=== PATIENT | male | born 1955 | race Caucasian/White ===

== ENCOUNTER 2017-04-18 16:47 | Inpatient (IN) | payer MEDICAID, OTHER ==
--- NOTE | 2017-04-18 17:33 | ED ---
Psych HPI - General Chief Complaint: Psychiatric Symptoms Stated Complaint: Mental Health Time Seen by Provider: 04/18/17 17:08 Source: patient, RN notes reviewed Mode of arrival: ambulatory Limitations: no limitations - History of Present Illness Initial Comments: This a 61-year-old male presents emergency Department from primary care physician's office for psychiatric evaluation. Patient states he is depressed, suicidal he did have a plan to either stab himself or shoot himself. Patient states he does have guns in his household. Patient states that he also has been hearing voices which is unusual for him. Patient denies any physical complaints. He states he is been taking his medications as directed as medications are given to him by his . His also states that his been slightly more aggressive recently. - Related Data Home Medications Medication Instructions Recorded Confirmed ALPRAZolam [Xanax] 1 mg PO TID PRN 05/05/16 04/18/17 Aclidinium [place] [Tudorza 1 puff INHALATION RT-Q12H 05/05/16 04/18/17 Pressair] Albuterol Inhaler [Ventolin Hfa 2 puff INHALATION RT-Q4H PRN 05/05/16 04/18/17 Inhaler] Amitriptyline HCl 25 mg PO DAILY 05/05/16 04/18/17 Atorvastatin [Lipitor] 40 mg PO DAILY 05/05/16 04/18/17 Cyclobenzaprine [Flexeril] 10 mg PO TID PRN 05/05/16 04/18/17 Donepezil [Aricept] 10 mg PO DAILY 05/05/16 04/18/17 FLUoxetine HCL [PROzac] 20 mg PO DAILY 05/05/16 04/18/17 Fenofibrate [Lofibra] 160 mg PO DAILY 05/05/16 04/18/17 HYDROcodone/APAP 7.5-325MG [[place] 1 tab PO TID PRN 05/05/16 04/18/17 7.5-325] Insulin Glargine [Lantus] 20 unit SQ HS 05/05/16 04/18/17 Insulin Glulisine [Apidra] 20 units SQ AC-TID 05/05/16 04/18/17 Magnesium Oxide [Magox 400] 400 mg PO BID 05/05/16 04/18/17 Metoprolol Tartrate [Lopressor] 50 mg PO BID 05/05/16 04/18/17 Potassium Chloride [Klor-Con] 20 meq PO DAILY 05/05/16 04/18/17 Warfarin [Coumadin] 5 mg PO DAILY 05/05/16 04/18/17 amLODIPine [Norvasc] 10 mg PO DAILY 05/05/16 04/18/17 levETIRAcetam [Keppra] 500 mg PO BID 05/05/16 04/18/17 metFORMIN HCL [Glucophage] 500 mg PO BID 05/05/16 04/18/17 Albuterol Nebulized [Ventolin 2.5 mg INHALATION RT-QID PRN 04/18/17 04/18/17 Nebulized] Docusate [Colace] 100 mg PO DAILY 04/18/17 04/18/17 Lisinopril [Zestril] 5 mg PO DAILY 04/18/17 04/18/17 Nitroglycerin Sl Tabs [Nitrostat] 0.4 mg SUBLINGUAL Q5M PRN 04/18/17 04/18/17 Zolpidem [Ambien] 5 mg PO HS 04/18/17 04/18/17 cloNIDine HCL [Catapres] 0.2 mg PO BID 04/18/17 04/18/17 Allergies Allergy/AdvReac Type Severity Reaction Status Date / Time aspirin Allergy Rash/Hives Verified 04/18/17 17:12 clarithromycin [From Biaxin] Allergy Rash/Hives Verified 04/18/17 17:12 Penicillins Allergy Rash/Hives Verified 04/18/17 17:12 Review of Systems ROS Statement: Those systems with pertinent positive or pertinent negative responses have been documented in the HPI. ROS Other: All systems not noted in ROS Statement are negative. Past Medical History Past Medical History: Atrial Fibrillation, Heart Failure, COPD, CVA/TIA, Diabetes Mellitus, Hyperlipidemia, Hypertension, Myocardial Infarction ([place]) History of Any Multi-Drug Resistant Organisms: None Reported Past Surgical History: Appendectomy, Tonsillectomy Past Anesthesia/Blood Transfusion Reactions: No Reported Reaction Past Psychological History: Anxiety, Depression Smoking Status: Current every day smoker Past Alcohol Use History: None Reported Past Drug Use History: None Reported General Exam Limitations: no limitations General appearance: alert, in no apparent distress Head exam: Present: atraumatic, normocephalic, normal inspection Eye exam: Present: normal appearance, PERRL, EOMI. Absent: scleral icterus, conjunctival injection, periorbital swelling Respiratory exam: Present: normal lung sounds bilaterally. Absent: respiratory distress, wheezes, rales, rhonchi, stridor Cardiovascular Exam: Present: regular rate, normal rhythm, normal heart sounds. Absent: systolic murmur, diastolic murmur, rubs, gallop, clicks Neurological exam: Present: alert, oriented X3, CN II-XII intact, reflexes normal. Absent: motor sensory deficit Psychiatric exam: Present: depressed, flat affect Skin exam: Present: warm, dry, intact, normal color. Absent: rash Course Vital Signs 04/18/17 17:00 Temperature 97.0 F L Pulse Rate 65 Respiratory 18 Rate Blood Pressure 136/65 O2 Sat by Pulse 97 Oximetry Disposition Clinical Impression: Depression, Suicidal ideation Disposition: ADMITTED IP TO THIS [facility] Condition: Stable Referrals: Leo Noe MD [Primary Care Provider] - 1-2 days
[2017-04-18] MEDS ORDERED: ACETAMINOPHEN TAB 325 MG TAB PO PRN (20:30)
[2017-04-18] MEDS ORDERED: MAG HYDROX/AL HYDROX/SIMETH 30 ML CUP PO PRN (20:30)
[2017-04-18] MEDS ORDERED: MAGNESIUM HYDROXIDE 2,400 MG/10 ML CUP PO PRN (20:30)
[2017-04-18] MEDS ORDERED: NITROGLYCERIN SL TABS 0.4 MG TAB SUBLINGUAL PRN (20:33)
[2017-04-18] MEDS ORDERED: ALBUTEROL NEBULIZED 2.5 MG/3 ML INHALATION PRN (20:33)
[2017-04-18] MEDS ORDERED: INSULIN DETEMIR 100 UNIT/ML 10 ML VIAL SQ SCH (21:00)
[2017-04-18] MEDS ORDERED: metFORMIN 500 MG TAB PO SCH (21:00)
[2017-04-18 21:49] LABS: Appearance,Urine Clear (Clear); Bilirubin,Urine Negative (Negative); Blood,Urine Negative (Negative); Color,Urine Yellow; Glucose,Urine (UA) Negative (Negative); Ketones,Urine Negative (Negative); Leukocyte Esterase,Urine Negative (Negative); Nitrite,Urine Negative (Negative); PH, Urine 5.5 (5.0-8.0); Protein,Urine Negative (Negative); Specific Gravity,Urine 1.009 (1.001-1.035); Urobilinogen,Urine <2.0 mg/dL (<2.0)
[2017-04-18 21:51] LABS: Amphetamine Screen,Urine Not Detected (NotDetected); Barbiturate Screen,Urine Not Detected (NotDetected); Benzodiazepines Screen,Urine Detected (NotDetected); Cocaine Screen,Urine Not Detected (NotDetected); Methadone Screen, Urine Not Detected (NotDetected); Opiate Screen,Urine Not Detected (NotDetected); Oxycodone Screen, Urine Not Detected (NotDetected); Phencyclidine Screen,Urine Not Detected (NotDetected); Tricyclic Antidepressant,Urine Detected (NotDetected); Urn Cannabinoid Scrn Not Detected (NotDetected)
[2017-04-18 21:57] LABS: Glucose,Whole Blood 146 mg/dL (75-99)
[2017-04-18] MEDS: METOPROLOL TARTRATE 50 MG TAB PO SCH ×2 (21:57→22:00)
[2017-04-18] MEDS: cloNIDine HCL 0.2 MG TAB PO SCH (21:57)
[2017-04-18] MEDS: levETIRAcetam 500 MG TAB PO SCH (22:00)
[2017-04-18] MEDS: MAGNESIUM OXIDE 400 MG TAB PO SCH (22:01)
[2017-04-18] MEDS ORDERED: INFLUENZA VACCINE (6 MOS+) 60 MCG/0.5 ML SYRINGE IM ONE (22:21)
[2017-04-18] MEDS: HYDROcodone/APAP 5-325MG 1 EACH TAB PO PRN (22:40)
[2017-04-19 05:56] LABS: Glucose,Whole Blood 147 mg/dL (75-99)
[2017-04-19] MEDS ORDERED: INSULIN ASPART 100 UNIT/ML 1 ML 10 ML VIAL SQ SCH (07:30)
[2017-04-19] MEDS ORDERED: IPRATROPIUM 0.5 MG/2.5 ML NEBU INHALATION SCH (08:00)
[2017-04-19] MEDS: INSULIN ASPART 100 UNIT/ML 1 ML 10 ML VIAL SQ SCH ×3 (08:18→18:19)
[2017-04-19] MEDS: HYDROcodone/APAP 5-325MG 1 EACH TAB PO PRN ×2 (08:20→17:24)
[2017-04-19] MEDS ORDERED: FLUoxetine HCL 20 MG CAP PO SCH (09:00)
[2017-04-19] MEDS ORDERED: AMITRIPTYLINE HCL 25 MG TAB PO SCH (09:00)
[2017-04-19 09:35] LABS: Basophils # (A) 0.1 k/uL (0-0.2); Basophils % (A) 1 %; Eosinophils # (A) 1.2 k/uL (0-0.7); Eosinophils % (A) 11 %; HCT 52.4 % (39.0-53.0); HGB 16.2 gm/dL (13.0-17.5); Hypochromasia Slight; Lymphocytes # (A) 2.3 k/uL (1.0-4.8); Lymphocytes % (A) 21 %; MCH 27.4 pg (25.0-35.0); MCV 88.5 fL (80.0-100.0); Mean Platelet Volume 8.8; Monocytes # (A) 0.6 k/uL (0-1.0); Monocytes % (A) 5 %; Neutrophils # (A) 6.5 k/uL (1.3-7.7); Neutrophils % (A) 61 %; Platelet Count 310 k/uL (150-450); RBC 5.92 m/uL (4.30-5.90); RDW 13.2 % (11.5-15.5); WBC 10.8 k/uL (3.8-10.6)
[2017-04-19 09:36] LABS: INR 2.3 (<1.2)
[2017-04-19] MEDS: TIOTROPIUM 18 MCG/PUFF INHALER INHALATION SCH (09:46)
[2017-04-19] MEDS: ALBUTEROL INHALER 60 PUFF/8 GM INHALER INHALATION PRN ×2 (09:46→21:20)
[2017-04-19 09:49] LABS: ALT 21 U/L (21-72); AST 31 U/L (17-59); Albumin 3.9 g/dL (3.5-5.0); Alkaline Phosphatase 70 U/L (38-126); Anion Gap 12 mmol/L; Blood Urea Nitrogen 17 mg/dL (9-20); Calcium 9.3 mg/dL (8.4-10.2); Carbon Dioxide 26 mmol/L (22-30); Chloride 103 mmol/L (98-107); Cholesterol 131 mg/dL (<200); Glucose 147 mg/dL (74-99); HDL Cholesterol 31 mg/dL (40-60); LDL Cholesterol,Calculated 63 mg/dL (0-99); Potassium 5.1 mmol/L (3.5-5.1); Sodium 141 mmol/L (137-145); Total Bilirubin 0.7 mg/dL (0.2-1.3); Triglycerides 185 mg/dL (<150)
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
[2017-04-19] MEDS: DONEPEZIL 10 MG TAB PO SCH (10:10)
[2017-04-19] MEDS: MAGNESIUM OXIDE 400 MG TAB PO SCH ×2 (10:10→21:36)
[2017-04-19] MEDS: DOCUSATE 100 MG CAP PO SCH (10:10)
[2017-04-19] MEDS: LISINOPRIL 5 MG TAB PO SCH (10:10)
[2017-04-19] MEDS: amLODIPine 10 MG TAB PO SCH (10:10)
[2017-04-19] MEDS: levETIRAcetam 500 MG TAB PO SCH ×2 (10:10→21:36)
[2017-04-19] MEDS: FENOFIBRATE 160 MG TAB PO SCH (10:10)
[2017-04-19] MEDS: ATORVASTATIN 40 MG TAB PO SCH (10:10)
[2017-04-19] MEDS: POTASSIUM CHLORIDE ER 20 MEQ TAB.ER PO SCH (10:10)
[2017-04-19] MEDS: NICOTINE 14MG/24HR PATCH TRANSDERM SCH (10:11)
[2017-04-19] MEDS: metFORMIN 500 MG TAB PO SCH ×2 (10:21→18:52)
[2017-04-19] MEDS: cloNIDine HCL 0.2 MG TAB PO SCH ×2 (10:21→21:36)
[2017-04-19 12:45] LABS: Glucose,Whole Blood 125 mg/dL (75-99)
--- NOTE | 2017-04-19 13:29 | P.CONS ---
History of Present Illness - Reason for Consult Consult date: 04/19/17 - Chief Complaint Depression with suicidal ideation. - History of Present Illness This is a history of physical on underlying 61-year-old white male with history of COPD, atrial fibrillation and history of heart failure who has some yesterday for appropriate quarterly diabetes check. The patient states significant depressive thoughts of the last several days secondary to family issues related to her children. He states starting become overwhelming and stated that he's been contemplating suicidal issues. He has never really act on this in the past. Again, my contact with them is mainly been with depression as from a psychiatric perspective and more of a cardio pulmonary treatment with history diabetes and morbid obesity. We will appropriate reconcile his medications. He is somewhat noncompliant taking his insulin as directed however. Review of Systems Constitutional: Reports fatigue Eyes: denies blurred vision, denies pain Ears, nose, mouth and throat: Denies headache, Denies sore throat Cardiovascular: Denies chest pain, Denies shortness of breath Respiratory: Denies cough Gastrointestinal: Denies abdominal pain, Denies diarrhea, Denies nausea, Denies vomiting Musculoskeletal: Denies myalgias Psychiatric: Reports anxiety, Reports depression Past Medical History Past Medical History: Atrial Fibrillation, Heart Failure, COPD, CVA/TIA, Diabetes Mellitus, Hyperlipidemia, Hypertension, Myocardial Infarction ([place]), Seizure Disorder, Sleep Apnea/CPAP/BIPAP Additional Past Medical History / Comment(s): Chronic lower back pain. Last Myocardial Infarction Date:: 2009 History of Any Multi-Drug Resistant Organisms: None Reported Past Surgical History: Appendectomy, Tonsillectomy Additional Past Surgical History / Comment(s): Middle finger to left hand surgery-removed piece of bone per patient. Past Anesthesia/Blood Transfusion Reactions: No Reported Reaction Past Psychological History: Anxiety, Depression Smoking Status: Current every day smoker Past Alcohol Use History: None Reported Additional Past Alcohol Use History / Comment(s): Pt. denies. Past Drug Use History: None Reported Additional Drug Use History / Comment(s): Pt. denies. - Past Family History Mother Family Medical History: Asthma, Chest Pain / Angina, Congestive Heart Failure ( CHF), COPD, Dementia, Hyperlipidemia, Hypertension, Memory Impairment, Myocardial Infarction ([place]), Pneumonia, Seizure Disorder, Sleep Apnea/CPAP/BIPAP Additional Family Medical History / Comment(s): Mother also had renal failure. Patient's mother at the age of 6666 years old. Father Family Medical History: Unable to Obtain Additional Family Medical History / Comment(s): Father has passed but patient unaware of his age when he passed. Medications and Allergies Home Medications Medication Instructions Recorded Confirmed Type ALPRAZolam [Xanax] 1 mg PO TID PRN 05/05/16 04/18/17 History Aclidinium [place] [[place]ud[place] 1 puff INHALATION RT-Q12H 05/05/16 04/18/17 History Pressair] Albuterol Inhaler [Ventolin Hfa 2 puff INHALATION RT-Q4H PRN 05/05/16 04/18/17 History Inhaler] Amitriptyline HCl 25 mg PO DAILY 05/05/16 04/18/17 History Atorvastatin [Lipitor] 40 mg PO DAILY 05/05/16 04/18/17 History Cyclobenzaprine [Flexeril] 10 mg PO TID PRN 05/05/16 04/18/17 History Donepezil [Aricept] 10 mg PO DAILY 05/05/16 04/18/17 History FLUoxetine HCL [PROzac] 20 mg PO DAILY 05/05/16 04/18/17 History Fenofibrate [Lofibra] 160 mg PO DAILY 05/05/16 04/18/17 History HYDROcodone/APAP 7.5-325MG [[place] 1 tab PO TID PRN 05/05/16 04/18/17 History 7.5-325] Insulin Glargine [Lantus] 20 unit SQ HS 05/05/16 04/18/17 History Insulin Glulisine [Apidra] 20 units SQ AC-TID 05/05/16 04/18/17 History Magnesium Oxide [Magox 400] 400 mg PO BID 05/05/16 04/18/17 History Metoprolol Tartrate [Lopressor] 50 mg PO BID 05/05/16 04/18/17 History Potassium Chloride [Klor-Con] 20 meq PO DAILY 05/05/16 04/18/17 History Warfarin [Coumadin] 5 mg PO DAILY 05/05/16 04/18/17 History amLODIPine [Norvasc] 10 mg PO DAILY 05/05/16 04/18/17 History levETIRAcetam [Keppra] 500 mg PO BID 05/05/16 04/18/17 History metFORMIN HCL [Glucophage] 500 mg PO BID 05/05/16 04/18/17 History Albuterol Nebulized [Ventolin 2.5 mg INHALATION RT-QID PRN 04/18/17 04/18/17 History Nebulized] Docusate [Colace] 100 mg PO DAILY 04/18/17 04/18/17 History Lisinopril [Zestril] 5 mg PO DAILY 04/18/17 04/18/17 History Nitroglycerin Sl Tabs [Nitrostat] 0.4 mg SUBLINGUAL Q5M PRN 04/18/17 04/18/17 History Zolpidem [Ambien] 5 mg PO HS 04/18/17 04/18/17 History cloNIDine HCL [Catapres] 0.2 mg PO BID 04/18/17 04/18/17 History Allergies Allergy/AdvReac Type Severity Reaction Status Date / Time aspirin Allergy Rash/Hives Verified 04/18/17 17:12 clarithromycin [From Biaxin] Allergy Rash/Hives Verified 04/18/17 17:12 Penicillins Allergy Rash/Hives Verified 04/18/17 17:12 Physical Exam Vitals: Vital Signs Temp Pulse Pulse Pulse Resp BP BP 04/19/17 10:18 65 18 145/84 04/19/17 03:09 97.6 F 65 12 04/18/17 21:20 96.8 F L 65 16 04/18/17 20:55 97.3 F L 65 16 150/85 04/18/17 17:00 97.0 F L 65 18 136/65 BP Pulse Ox 04/19/17 10:18 95 04/19/17 03:09 144/77 04/18/17 21:20 132/80 95 04/18/17 20:55 97 04/18/17 17:00 97 Intake and Output 04/18/17 04/19/17 04/19/17 22:59 06:59 14:59 Other: Weight 123.831 kg - Constitutional General appearance: obese - EENT Eyes: EOMI - Neck Neck: no lymphadenopathy - Respiratory Respiratory: bilateral: CTA - Cardiovascular Rhythm: irregularly irregular Heart sounds: normal: S1, S2 - Gastrointestinal General gastrointestinal: soft, no splenomegaly - Integumentary Integumentary: no cellulitis - Neurologic Neurologic: CNII-XII intact Results CBC & Chem 7: 04/19/17 08:57 04/19/17 08:57 Labs: Abnormal Lab Results - Last 24 Hours (Table) 04/18/17 04/18/17 04/19/17 Range/Units 20:15 21:53 05:51 WBC (3.8-10.6) k/uL RBC (4.30-5.90) m/uL Eosinophils # (0-0.7) k/uL PT (9.0-12.0) sec INR (<1.2) Creatinine (0.66-1.25) mg/dL Glucose (74-99) mg/dL POC Glucose (mg/dL) 146 H 147 H (75-99) mg/dL Triglycerides (<150) mg/dL HDL Cholesterol (40-60) mg/dL U Tricyclic Antidepress Detected H (NotDetected) U Benzodiazepines Scrn Detected H (NotDetected) 04/19/17 04/19/17 04/19/17 Range/Units 08:57 08:57 08:57 WBC 10.8 H (3.8-10.6) k/uL RBC 5.92 H (4.30-5.90) m/uL Eosinophils # 1.2 H (0-0.7) k/uL PT 21.0 H (9.0-12.0) sec INR 2.3 H (<1.2) Creatinine 0.61 L (0.66-1.25) mg/dL Glucose 147 H (74-99) mg/dL POC Glucose (mg/dL) (75-99) mg/dL Triglycerides 185 H (<150) mg/dL HDL Cholesterol 31 L (40-60) mg/dL U Tricyclic Antidepress (NotDetected) U Benzodiazepines Scrn (NotDetected) 04/19/17 Range/Units 12:42 WBC (3.8-10.6) k/uL RBC (4.30-5.90) m/uL Eosinophils # (0-0.7) k/uL PT (9.0-12.0) sec INR (<1.2) Creatinine (0.66-1.25) mg/dL Glucose (74-99) mg/dL POC Glucose (mg/dL) 125 H (75-99) mg/dL Triglycerides (<150) mg/dL HDL Cholesterol (40-60) mg/dL U Tricyclic Antidepress (NotDetected) U Benzodiazepines Scrn (NotDetected) Assessment and Plan (1) COPD (chronic obstructive pulmonary disease) Current Visit: Yes Status: Acute Code(s): J44.9 - CHRONIC OBSTRUCTIVE PULMONARY DISEASE, UNSPECIFIED SNOMED Code(s): 09303735 (2) Diabetes Current Visit: Yes Status: Acute Code(s): E11.9 - TYPE 2 DIABETES MELLITUS WITHOUT COMPLICATIONS SNOMED Code(s): 03438466 (3) Depression Current Visit: Yes Status: Acute Code(s): F32.9 - MAJOR DEPRESSIVE DISORDER , SINGLE EPISODE, UNSPECIFIED SNOMED Code(s): 54838994 (4) Suicidal ideation Current Visit: Yes Status: Acute Code(s): R45.851 - SUICIDAL IDEATIONS SNOMED Code(s): 1100492 Plan: We'll go ahead and titrate Lantus to half his normal dose to 10 units and keep on sliding scale this time. Check CBC CMP and PT/INR. See orders otherwise. We'll continue to follow from a medical perspective during his hospitalization. Hopefully, he gets back to is more "baseline." Time with Patient: Greater than 30
[2017-04-19] MEDS: LORazepam 1 MG TAB PO PRN (17:28)
[2017-04-19] MEDS ORDERED: WARFARIN 5 MG TAB PO SCH (18:00)
[2017-04-19 18:09] LABS: Glucose,Whole Blood 129 mg/dL (75-99)
[2017-04-19 21:21] LABS: Hemoglobin A1C 7.8 % (4.0-6.0)
[2017-04-19] MEDS: INSULIN DETEMIR 100 UNIT/ML 10 ML VIAL SQ SCH (21:33)
[2017-04-19] MEDS: METOPROLOL TARTRATE 50 MG TAB PO SCH (21:36)
[2017-04-19] MEDS: AMITRIPTYLINE HCL 25 MG TAB PO SCH (21:36)
[2017-04-19 21:52] LABS: Glucose,Whole Blood 167 mg/dL (75-99)
[2017-04-20 06:27] LABS: Glucose,Whole Blood 145 mg/dL (75-99)
[2017-04-20] MEDS: INSULIN ASPART 100 UNIT/ML 1 ML 10 ML VIAL SQ SCH ×3 (09:19→18:01)
[2017-04-20] MEDS: METOPROLOL TARTRATE 50 MG TAB PO SCH ×2 (09:21→20:57)
[2017-04-20] MEDS: NICOTINE 14MG/24HR PATCH TRANSDERM SCH (09:21)
[2017-04-20] MEDS: ATORVASTATIN 40 MG TAB PO SCH (09:21)
[2017-04-20] MEDS: DONEPEZIL 10 MG TAB PO SCH (09:21)
[2017-04-20] MEDS: MAGNESIUM OXIDE 400 MG TAB PO SCH ×2 (09:21→20:57)
[2017-04-20] MEDS: POTASSIUM CHLORIDE ER 20 MEQ TAB.ER PO SCH (09:21)
[2017-04-20] MEDS: LISINOPRIL 5 MG TAB PO SCH (09:21)
[2017-04-20] MEDS: DOCUSATE 100 MG CAP PO SCH (09:21)
[2017-04-20] MEDS: levETIRAcetam 500 MG TAB PO SCH ×2 (09:21→21:00)
[2017-04-20] MEDS: amLODIPine 10 MG TAB PO SCH (09:21)
[2017-04-20] MEDS: FENOFIBRATE 160 MG TAB PO SCH (09:21)
[2017-04-20] MEDS: cloNIDine HCL 0.2 MG TAB PO SCH ×2 (09:22→20:57)
[2017-04-20] MEDS: ESCITALOPRAM 10 MG TAB PO SCH (09:22)
[2017-04-20] MEDS: metFORMIN 500 MG TAB PO SCH ×2 (09:22→17:59)
--- NOTE | 2017-04-20 10:21 | P.PN ---
Progress Note - Text Interval history: The patient is found in his room he follows me to an interview room. He reports that he slept last night and his appetite has been surprisingly better. He continues to endorse a depressed mood he feels hopeless useless and states that he has had suicidal thoughts last night and today. He continues to endorse an auditory hallucination directing self-harm he last heard that this morning. He is reporting no visual hallucinations. He expresses some confusion as to when to go to groups and he was provided direction. Mental status exam: The patient's is an alert male. He is ambulatory with a walker. He is dressed in hospital gowns. It appears that he has showered and his grooming is improved. He reports a depressed and hopeless mood as noted above he continues to have suicidal ideation. Affect is bland with little reactivity. Eye contact is intermittent. Speech is mainly reactive to questions asked and not very spontaneous. He is oriented to place and day of the week month and year. He demonstrates no verbal or physical aggressiveness. Plan: The patient will continue on the Lexapro that we have just started. We will consider adding an antipsychotic medication if necessary for his auditory hallucinations. We will continue to monitor him for safety and overall function on the mental health unit. He requires continued psychiatric hospitalization.
[2017-04-20] MEDS: ALBUTEROL INHALER 60 PUFF/8 GM INHALER INHALATION PRN ×3 (10:23→21:05)
[2017-04-20] MEDS: TIOTROPIUM 18 MCG/PUFF INHALER INHALATION SCH (10:23)
[2017-04-20 10:37] LABS: HCT 50.5 % (39.0-53.0); HGB 15.5 gm/dL (13.0-17.5); Hypochromasia Slight; MCH 27.6 pg (25.0-35.0); MCHC 30.6 g/dL (31.0-37.0); MCV 90.3 fL (80.0-100.0); Mean Platelet Volume 7.3; Platelet Count 323 k/uL (150-450); RDW 13.5 % (11.5-15.5); WBC 9.5 k/uL (3.8-10.6)
[2017-04-20 10:46] LABS: INR 1.5 (<1.2); Prothrombin Time 14.2 sec (9.0-12.0)
[2017-04-20 11:19] LABS: ALT 26 U/L (21-72); AST 20 U/L (17-59); Albumin 3.8 g/dL (3.5-5.0); Alkaline Phosphatase 74 U/L (38-126); Anion Gap 11 mmol/L; Blood Urea Nitrogen 19 mg/dL (9-20); Calcium 9.8 mg/dL (8.4-10.2); Carbon Dioxide 29 mmol/L (22-30); Chloride 102 mmol/L (98-107); Glucose 184 mg/dL (74-99); Potassium 4.6 mmol/L (3.5-5.1); Sodium 142 mmol/L (137-145); Total Bilirubin 0.4 mg/dL (0.2-1.3); Total Protein 6.5 g/dL (6.3-8.2)
[2017-04-20 13:20] LABS: Glucose,Whole Blood 105 mg/dL (75-99)
[2017-04-20] MEDS: LORazepam 1 MG TAB PO PRN (16:52)
[2017-04-20 17:39] LABS: Glucose,Whole Blood 138 mg/dL (75-99)
[2017-04-20] MEDS: WARFARIN 3 MG TAB PO SCH (17:58)
[2017-04-20] MEDS: HYDROcodone/APAP 5-325MG 1 EACH TAB PO PRN (20:33)
[2017-04-20] MEDS: INSULIN DETEMIR 100 UNIT/ML 10 ML VIAL SQ SCH (20:36)
[2017-04-20 20:44] LABS: Glucose,Whole Blood 140 mg/dL (75-99)
[2017-04-20] MEDS: AMITRIPTYLINE HCL 25 MG TAB PO SCH (20:57)
[2017-04-21 06:54] LABS: Glucose,Whole Blood 125 mg/dL (75-99)
[2017-04-21] MEDS: INSULIN ASPART 100 UNIT/ML 1 ML 10 ML VIAL SQ SCH ×3 (08:19→18:14)
[2017-04-21] MEDS: metFORMIN 500 MG TAB PO SCH ×2 (08:20→16:49)
[2017-04-21] MEDS: METOPROLOL TARTRATE 50 MG TAB PO SCH ×2 (08:49→20:29)
[2017-04-21] MEDS: NICOTINE 14MG/24HR PATCH TRANSDERM SCH (08:49)
[2017-04-21] MEDS: amLODIPine 10 MG TAB PO SCH (08:49)
[2017-04-21] MEDS: ESCITALOPRAM 10 MG TAB PO SCH (08:50)
[2017-04-21] MEDS: ATORVASTATIN 40 MG TAB PO SCH (08:50)
[2017-04-21] MEDS: DONEPEZIL 10 MG TAB PO SCH (08:50)
[2017-04-21] MEDS: DOCUSATE 100 MG CAP PO SCH (08:50)
[2017-04-21] MEDS: FENOFIBRATE 160 MG TAB PO SCH (08:50)
[2017-04-21] MEDS: POTASSIUM CHLORIDE ER 20 MEQ TAB.ER PO SCH (08:50)
[2017-04-21] MEDS: cloNIDine HCL 0.2 MG TAB PO SCH ×2 (08:50→20:28)
[2017-04-21] MEDS: MAGNESIUM OXIDE 400 MG TAB PO SCH ×2 (08:50→20:29)
[2017-04-21] MEDS: LISINOPRIL 5 MG TAB PO SCH (08:50)
[2017-04-21] MEDS: levETIRAcetam 500 MG TAB PO SCH ×2 (08:50→20:28)
[2017-04-21] MEDS: LORazepam 1 MG TAB PO PRN (08:52)
[2017-04-21] MEDS: HYDROcodone/APAP 5-325MG 1 EACH TAB PO PRN ×2 (08:52→16:49)
[2017-04-21 09:15] LABS: INR 1.5 (<1.2); Prothrombin Time 13.9 sec (9.0-12.0)
[2017-04-21] MEDS: TIOTROPIUM 18 MCG/PUFF INHALER INHALATION SCH (10:02)
--- NOTE | 2017-04-21 10:24 | P.PN ---
Progress Note - Text Interval history: The patient is found in group he follows me to an interview room. He reports that his mood is practically the same. He feels depressed he feels hopeless and continues to have suicidal thoughts. Fortunately he states he has not had any auditory hallucinations yesterday or today. He reports having some difficulty with sleep last evening he asked to have his Ambien restarted and we discussed trying to use melatonin instead. It appears that Elavil is prescribed for neuropathic pain. We discussed that there is some risk that it could worsen memory and concentration for him due to its anti- cholinergic properties especially in the context of having suspected neurocognitive symptoms. He is okay with us discontinuing the Elavil. Mental status exam: The patient is an overweight male he is dressed in his own clothing he is ambulating with a walker. Eye contact is intermittent. There are times when he will stare at the wall for several seconds without speaking. He reports a depressed mood with hopelessness thinking and suicidal thoughts. He is endorsing no auditory or visual hallucinations. He is endorsing no specific delusions. In conversation he does demonstrate some difficulty with short-term memory. He demonstrates no tangential thinking loose associations or flight of ideas. There is no evidence of hypomania or pepe. There is no observed evidence of psychosis. He demonstrates no verbal or physical aggressiveness. Plan: The patient will continue on his current medication however we will discontinue the Elavil we will prescribe melatonin 5 mg at bedtime for sleep. We will monitor him for safety and encourage his participation in the milieu. Vital signs reviewed.
[2017-04-21 12:59] LABS: Glucose,Whole Blood 122 mg/dL (75-99)
[2017-04-21 17:49] LABS: Glucose,Whole Blood 121 mg/dL (75-99)
[2017-04-21] MEDS: WARFARIN 3 MG TAB PO SCH (18:17)
[2017-04-21 20:08] LABS: Glucose,Whole Blood 165 mg/dL (75-99)
[2017-04-21] MEDS: INSULIN DETEMIR 100 UNIT/ML 10 ML VIAL SQ SCH (20:25)
[2017-04-21] MEDS: MELATONIN 5 MG TABLET PO SCH (20:29)
[2017-04-21] MEDS: ALBUTEROL INHALER 60 PUFF/8 GM INHALER INHALATION PRN (21:05)
[2017-04-22 06:46] LABS: Glucose,Whole Blood 130 mg/dL (75-99)
[2017-04-22] MEDS: INSULIN ASPART 100 UNIT/ML 1 ML 10 ML VIAL SQ SCH ×3 (08:19→17:58)
[2017-04-22] MEDS: TIOTROPIUM 18 MCG/PUFF INHALER INHALATION SCH (08:20)
[2017-04-22] MEDS: NICOTINE 14MG/24HR PATCH TRANSDERM SCH (08:37)
[2017-04-22] MEDS: metFORMIN 500 MG TAB PO SCH ×2 (08:38→17:58)
[2017-04-22] MEDS: METOPROLOL TARTRATE 50 MG TAB PO SCH ×2 (08:38→20:33)
[2017-04-22] MEDS: FENOFIBRATE 160 MG TAB PO SCH (08:38)
[2017-04-22] MEDS: MAGNESIUM OXIDE 400 MG TAB PO SCH ×2 (08:38→20:33)
[2017-04-22] MEDS: cloNIDine HCL 0.2 MG TAB PO SCH ×2 (08:38→20:33)
[2017-04-22] MEDS: ESCITALOPRAM 10 MG TAB PO SCH (08:38)
[2017-04-22] MEDS: amLODIPine 10 MG TAB PO SCH (08:38)
[2017-04-22] MEDS: levETIRAcetam 500 MG TAB PO SCH ×2 (08:38→20:33)
[2017-04-22] MEDS: DONEPEZIL 10 MG TAB PO SCH (08:38)
[2017-04-22] MEDS: ATORVASTATIN 40 MG TAB PO SCH (08:38)
[2017-04-22] MEDS: DOCUSATE 100 MG CAP PO SCH (08:38)
[2017-04-22] MEDS: LISINOPRIL 5 MG TAB PO SCH (08:39)
[2017-04-22] MEDS: POTASSIUM CHLORIDE ER 20 MEQ TAB.ER PO SCH (08:39)
[2017-04-22] MEDS: HYDROcodone/APAP 5-325MG 1 EACH TAB PO PRN ×2 (08:40→20:38)
[2017-04-22] MEDS: LORazepam 1 MG TAB PO PRN ×2 (09:17→20:38)
[2017-04-22 09:20] LABS: INR 1.7 (<1.2); Prothrombin Time 15.6 sec (9.0-12.0)
--- NOTE | 2017-04-22 09:52 | P.PN ---
Progress Note - Text Interval history: The patient is found in the library he follows me to an interview room. He reports that he doesn't feel as well physically today as he feels he is getting a cold. He reports attending groups and he finds them "interesting". Appetite stable. It's documented he slept 6 hours last evening. He reports looking forward to a visit from his . We reviewed his psychotropic medication and his questions were answered. Mental status exam: The patient is an overweight male appearing his stated age. He is dressed in hospital gowns. He continues to ambulate with use of a walker. Eye contact is intermittent. Speech is more spontaneous but is slow and quiet. He reports his mood is still depressed he still has hopeless thoughts. He is endorsing no suicidal thoughts so far today but did have some yesterday. This is his third day without any auditory hallucinations he states. Thought process is linear. He does struggle with some short-term memory and concentration function. He demonstrates no verbal or physical aggressiveness he demonstrates no abnormal involuntary movements. Plan: The patient will continue on his current psychotropic medication. He is encouraged to continue complying with groups. Blood pressure seems elevated we will continue to monitor. He requires continued psychiatric hospitalization.
[2017-04-22 12:58] LABS: Glucose,Whole Blood 106 mg/dL (75-99)
[2017-04-22 17:48] LABS: Glucose,Whole Blood 132 mg/dL (75-99)
[2017-04-22] MEDS ORDERED: WARFARIN 7.5 MG TAB PO ONE (18:00)
[2017-04-22 19:59] LABS: Glucose,Whole Blood 222 mg/dL (75-99)
[2017-04-22] MEDS: MELATONIN 5 MG TABLET PO SCH (20:33)
[2017-04-22] MEDS: INSULIN DETEMIR 100 UNIT/ML 10 ML VIAL SQ SCH (20:34)
[2017-04-22] MEDS: ALBUTEROL INHALER 60 PUFF/8 GM INHALER INHALATION PRN (20:45)
[2017-04-23 06:33] LABS: Glucose,Whole Blood 125 mg/dL (75-99)
[2017-04-23] MEDS: HYDROcodone/APAP 5-325MG 1 EACH TAB PO PRN ×2 (07:19→17:33)
[2017-04-23] MEDS: LORazepam 1 MG TAB PO PRN ×2 (07:20→20:47)
[2017-04-23] MEDS: INSULIN ASPART 100 UNIT/ML 1 ML 10 ML VIAL SQ SCH ×3 (08:10→18:10)
[2017-04-23 08:38] LABS: Prothrombin Time 17.9 sec (9.0-12.0)
[2017-04-23] MEDS: DOCUSATE 100 MG CAP PO SCH (09:13)
[2017-04-23] MEDS: NICOTINE 14MG/24HR PATCH TRANSDERM SCH (09:13)
[2017-04-23] MEDS: ATORVASTATIN 40 MG TAB PO SCH (09:13)
[2017-04-23] MEDS: DONEPEZIL 10 MG TAB PO SCH (09:13)
[2017-04-23] MEDS: FENOFIBRATE 160 MG TAB PO SCH (09:14)
[2017-04-23] MEDS: metFORMIN 500 MG TAB PO SCH ×2 (09:14→18:11)
[2017-04-23] MEDS: amLODIPine 10 MG TAB PO SCH (09:14)
[2017-04-23] MEDS: POTASSIUM CHLORIDE ER 20 MEQ TAB.ER PO SCH (09:14)
[2017-04-23] MEDS: ESCITALOPRAM 10 MG TAB PO SCH (09:14)
[2017-04-23] MEDS: LISINOPRIL 5 MG TAB PO SCH (09:14)
[2017-04-23] MEDS: MAGNESIUM OXIDE 400 MG TAB PO SCH ×2 (09:14→20:45)
[2017-04-23] MEDS: cloNIDine HCL 0.2 MG TAB PO SCH ×2 (09:14→20:44)
[2017-04-23] MEDS: levETIRAcetam 500 MG TAB PO SCH ×2 (09:14→20:44)
[2017-04-23] MEDS: METOPROLOL TARTRATE 50 MG TAB PO SCH ×2 (09:14→20:45)
[2017-04-23] MEDS: TIOTROPIUM 18 MCG/PUFF INHALER INHALATION SCH (09:23)
[2017-04-23] MEDS: ALBUTEROL INHALER 60 PUFF/8 GM INHALER INHALATION PRN ×2 (09:23→21:49)
[2017-04-23 12:57] LABS: Glucose,Whole Blood 88 mg/dL (75-99)
--- NOTE | 2017-04-23 14:58 | P.PN ---
Subjective Progress Note Date: 04/23/17 Principal diagnosis: Interval history: The patient was seen in his room , he reports feeling tired , helpless and useless "My physical condition is worst ,I have lot of medical issues and I can not function as before",endorses suicidal ideation and hopeless feeling,he reports initial insomnia and frequent nightmares ,feeling tired and fatigue,denies any psychotic features Mental status exam: The patient is an overweight male appearing his stated age. He is dressed in hospital gowns. He continues to ambulate with use of a walker. Eye contact is intermittent. Speech is spontaneous ,normal in tone and volume. He reports his mood is still depressed he still has hopeless thoughts. He reports suicidal ideation ,no specific plan . Thought process is linear. He denies any psychotic features ,insight and judgment are limited Plan: The patient will continue on his current psychotropic medication however we will increase Lexapro 20 mg He is encouraged to continue complying with groups. He requires continued psychiatric hospitalization. Objective - Vital Signs Vital signs: Vital Signs Temp 97.6 F 04/22/17 17:53 Pulse 77 04/23/17 09:15 Resp 18 04/23/17 09:15 BP 162/79 04/23/17 09:15 Pulse Ox 99 04/21/17 06:49 - Labs CBC & Chem 7: 04/20/17 10:04 04/20/17 10:04 Labs: Abnormal Lab Results - Last 24 Hours (Table) 04/22/17 04/22/17 04/23/17 Range/Units 17:33 19:53 06:15 PT (9.0-12.0) sec INR (<1.2) POC Glucose (mg/dL) 132 H 222 H 125 H (75-99) mg/dL 04/23/17 Range/Units 08:03 PT 17.9 H (9.0-12.0) sec INR 2.0 H (<1.2) POC Glucose (mg/dL) (75-99) mg/dL
[2017-04-23 17:52] LABS: Glucose,Whole Blood 170 mg/dL (75-99)
[2017-04-23] MEDS ORDERED: WARFARIN 2 MG TAB PO ONE (18:00)
[2017-04-23] MEDS ORDERED: WARFARIN 5 MG TAB PO ONE (18:00)
[2017-04-23 20:06] LABS: Glucose,Whole Blood 164 mg/dL (75-99)
[2017-04-23] MEDS: MELATONIN 5 MG TABLET PO SCH (20:45)
[2017-04-23] MEDS: INSULIN DETEMIR 100 UNIT/ML 10 ML VIAL SQ SCH (21:30)
[2017-04-24 07:18] LABS: Glucose,Whole Blood 131 mg/dL (75-99)
[2017-04-24] MEDS: INSULIN ASPART 100 UNIT/ML 1 ML 10 ML VIAL SQ SCH ×3 (08:09→16:53)
[2017-04-24] MEDS: metFORMIN 500 MG TAB PO SCH ×2 (08:10→16:55)
[2017-04-24] MEDS: ATORVASTATIN 40 MG TAB PO SCH (08:13)
[2017-04-24] MEDS: amLODIPine 10 MG TAB PO SCH (08:13)
[2017-04-24] MEDS: NICOTINE 14MG/24HR PATCH TRANSDERM SCH (08:13)
[2017-04-24] MEDS: DOCUSATE 100 MG CAP PO SCH (08:13)
[2017-04-24] MEDS: cloNIDine HCL 0.2 MG TAB PO SCH ×2 (08:13→20:53)
[2017-04-24] MEDS: DONEPEZIL 10 MG TAB PO SCH (08:14)
[2017-04-24] MEDS: FENOFIBRATE 160 MG TAB PO SCH (08:14)
[2017-04-24] MEDS: levETIRAcetam 500 MG TAB PO SCH ×2 (08:14→20:53)
[2017-04-24] MEDS: ESCITALOPRAM 20 MG TAB PO SCH (08:14)
[2017-04-24] MEDS: MAGNESIUM OXIDE 400 MG TAB PO SCH ×2 (08:15→20:53)
[2017-04-24] MEDS: POTASSIUM CHLORIDE ER 20 MEQ TAB.ER PO SCH (08:15)
[2017-04-24] MEDS: METOPROLOL TARTRATE 50 MG TAB PO SCH ×2 (08:15→20:53)
[2017-04-24] MEDS: LISINOPRIL 5 MG TAB PO SCH (08:15)
[2017-04-24] MEDS: HYDROcodone/APAP 5-325MG 1 EACH TAB PO PRN ×2 (08:15→16:55)
[2017-04-24 09:22] LABS: INR 2.6 (<1.2); Prothrombin Time 23.5 sec (9.0-12.0)
[2017-04-24] MEDS: ALBUTEROL INHALER 60 PUFF/8 GM INHALER INHALATION PRN ×3 (10:34→21:45)
[2017-04-24] MEDS: TIOTROPIUM 18 MCG/PUFF INHALER INHALATION SCH (10:34)
[2017-04-24] MEDS ORDERED: ONDANSETRON ODT 4 MG TAB PO STA (11:46)
--- NOTE | 2017-04-24 11:53 | P.PN ---
Progress Note - Text Progress Note Date: 04/24/17 Interval history: The patient was seen in his room , he was laying in his bed , reports upset stomach and nausea,endorses suicidal ideation and hopeless feeling ,he reports that his sleeping is better and did not report any nightmares as before, patient is somatic preoccupied ,staying in his room most of day , limited interaction with peers Mental status exam: The patient is an overweight male appearing his stated age. He is dressed in hospital gowns. He continues to ambulate with use of a walker. Eye contact is intermittent. Speech is spontaneous ,normal in tone and volume. He reports his mood is still depressed he still has hopeless thoughts. He reports suicidal ideation ,no specific plan . Thought process is linear. He denies any psychotic features ,insight and judgment are limited Plan: The patient will continue on his current psychotropic medication ,order one dose of Zofran . He is encouraged to continue complying with groups. He requires continued psychiatric hospitalization.
[2017-04-24 12:33] LABS: Glucose,Whole Blood 104 mg/dL (75-99)
[2017-04-24 17:12] LABS: Glucose,Whole Blood 124 mg/dL (75-99)
[2017-04-24] MEDS ORDERED: WARFARIN 5 MG TAB PO ONE (18:00)
[2017-04-24] MEDS ORDERED: WARFARIN 2 MG TAB PO ONE (18:00)
[2017-04-24 20:52] LABS: Glucose,Whole Blood 159 mg/dL (75-99)
[2017-04-24] MEDS: MELATONIN 5 MG TABLET PO SCH (20:53)
[2017-04-24] MEDS: INSULIN DETEMIR 100 UNIT/ML 10 ML VIAL SQ SCH (20:54)
[2017-04-24] MEDS: LORazepam 1 MG TAB PO PRN (22:17)
[2017-04-25 06:28] LABS: Glucose,Whole Blood 131 mg/dL (75-99)
[2017-04-25] MEDS: INSULIN ASPART 100 UNIT/ML 1 ML 10 ML VIAL SQ SCH ×3 (08:10→17:46)
[2017-04-25] MEDS: ATORVASTATIN 40 MG TAB PO SCH (08:17)
[2017-04-25] MEDS: metFORMIN 500 MG TAB PO SCH ×2 (08:17→16:36)
[2017-04-25] MEDS: amLODIPine 10 MG TAB PO SCH (08:17)
[2017-04-25] MEDS: ESCITALOPRAM 20 MG TAB PO SCH (08:17)
[2017-04-25] MEDS: NICOTINE 14MG/24HR PATCH TRANSDERM SCH (08:17)
[2017-04-25] MEDS: FENOFIBRATE 160 MG TAB PO SCH (08:18)
[2017-04-25] MEDS: DOCUSATE 100 MG CAP PO SCH (08:18)
[2017-04-25] MEDS: LORazepam 1 MG TAB PO PRN ×2 (08:18→20:22)
[2017-04-25] MEDS: cloNIDine HCL 0.2 MG TAB PO SCH ×2 (08:18→20:22)
[2017-04-25] MEDS: HYDROcodone/APAP 5-325MG 1 EACH TAB PO PRN ×2 (08:18→16:36)
[2017-04-25] MEDS: DONEPEZIL 10 MG TAB PO SCH (08:18)
[2017-04-25] MEDS: levETIRAcetam 500 MG TAB PO SCH ×2 (08:19→20:21)
[2017-04-25] MEDS: LISINOPRIL 5 MG TAB PO SCH (08:20)
[2017-04-25] MEDS: MAGNESIUM OXIDE 400 MG TAB PO SCH ×2 (08:20→20:21)
[2017-04-25] MEDS: POTASSIUM CHLORIDE ER 20 MEQ TAB.ER PO SCH (08:20)
[2017-04-25] MEDS: METOPROLOL TARTRATE 50 MG TAB PO SCH ×2 (08:20→20:21)
[2017-04-25] MEDS: TIOTROPIUM 18 MCG/PUFF INHALER INHALATION SCH (09:20)
[2017-04-25] MEDS: ALBUTEROL INHALER 60 PUFF/8 GM INHALER INHALATION PRN ×2 (09:20→22:12)
[2017-04-25 09:54] LABS: INR 2.8 (<1.2); Prothrombin Time 24.9 sec (9.0-12.0)
--- NOTE | 2017-04-25 10:12 | P.PN ---
Progress Note - Text Interval history: The patient is found in his room he follows me to an interview room. He reports that his suicidal thoughts are resolving. He is feeling safer. His was involved in a family meeting yesterday on the mental health unit. He indicates his sleep has been stable staff recorded 6 hours last evening. Appetite is stable. He is selectively attending groups and states he just doesn't hear when they are called all of the time. Mental status exam: The patient is an overweight male appearing his stated age. He ambulates with a walker. Eye contact is appropriate speech is fluent. He mainly response to questions asked. He indicates his mood is getting better. He is feeling safer and indicates that suicidal thoughts are resolving. He is endorsing no auditory or visual hallucinations or specific delusions. There is no observed evidence of psychosis. He does not appear hypomanic or manic. He demonstrates no tangential thinking loose associations or flight of ideas. He does struggle with short-term memory and concentration. Plan: The patient will continue on his current psychotropic medication. The Lexapro has been titrated to 20 mg daily over the weekend. We will anticipate discharging him in the next 1-2 days if he demonstrates further stability with the absence of suicidal ideation. Vital signs reviewed. We will continue monitoring him for safety and encourage him his full participation in the milieu.
[2017-04-25 12:52] LABS: Glucose,Whole Blood 105 mg/dL (75-99)
[2017-04-25 17:44] LABS: Glucose,Whole Blood 109 mg/dL (75-99)
[2017-04-25] MEDS ORDERED: WARFARIN 2 MG TAB PO ONE (18:00)
[2017-04-25 20:14] LABS: Glucose,Whole Blood 148 mg/dL (75-99)
[2017-04-25] MEDS: INSULIN DETEMIR 100 UNIT/ML 10 ML VIAL SQ SCH (20:19)
[2017-04-25] MEDS: MELATONIN 5 MG TABLET PO SCH (20:21)
[2017-04-26 06:40] LABS: Glucose,Whole Blood 134 mg/dL (75-99)
[2017-04-26 07:03] VITALS: TEMP 98.1
[2017-04-26] MEDS: INSULIN ASPART 100 UNIT/ML 1 ML 10 ML VIAL SQ SCH ×2 (07:34→12:41)
[2017-04-26] MEDS: ALBUTEROL INHALER 60 PUFF/8 GM INHALER INHALATION PRN (08:45)
[2017-04-26] MEDS: TIOTROPIUM 18 MCG/PUFF INHALER INHALATION SCH (08:45)
[2017-04-26] MEDS: NICOTINE 14MG/24HR PATCH TRANSDERM SCH (08:57)
[2017-04-26] MEDS: POTASSIUM CHLORIDE ER 20 MEQ TAB.ER PO SCH (08:59)
[2017-04-26] MEDS: DONEPEZIL 10 MG TAB PO SCH (08:59)
[2017-04-26] MEDS: ATORVASTATIN 40 MG TAB PO SCH (08:59)
[2017-04-26] MEDS: ESCITALOPRAM 20 MG TAB PO SCH (08:59)
[2017-04-26] MEDS: LISINOPRIL 5 MG TAB PO SCH (08:59)
[2017-04-26] MEDS: levETIRAcetam 500 MG TAB PO SCH (08:59)
[2017-04-26] MEDS: amLODIPine 10 MG TAB PO SCH (08:59)
[2017-04-26] MEDS: cloNIDine HCL 0.2 MG TAB PO SCH (08:59)
[2017-04-26] MEDS: FENOFIBRATE 160 MG TAB PO SCH (08:59)
[2017-04-26] MEDS: METOPROLOL TARTRATE 50 MG TAB PO SCH (08:59)
[2017-04-26] MEDS: MAGNESIUM OXIDE 400 MG TAB PO SCH (08:59)
[2017-04-26] MEDS: HYDROcodone/APAP 5-325MG 1 EACH TAB PO PRN (09:00)
[2017-04-26] MEDS: metFORMIN 500 MG TAB PO SCH (09:00)
[2017-04-26] MEDS: DOCUSATE 100 MG CAP PO SCH (09:00)
[2017-04-26] MEDS: LORazepam 1 MG TAB PO PRN (09:00)
[2017-04-26 09:03] LABS: INR 2.9 (<1.2); Prothrombin Time 26.3 sec (9.0-12.0)
--- NOTE | 2017-04-26 09:13 | P.DS ---
Providers Date of admission: 04/18/17 20:28 Expected date of discharge: 04/26/17 Attending physician: Santiago Nuñez Consults: 04/18/17 20:30 Consult Physician Routine Consulting Provider: Leo Noe Consult Reason/Comments: follow up H & P Do you want consulting provider notified?: Yes Primary care physician: Leo Noe - Discharge Diagnosis(es) (1) Major depressive disorder, recurrent, severe with psychotic features Current Visit: Yes Status: Acute Priority: High (2) Anxiety Current Visit: Yes Status: Acute Priority: Medium Hospital Course: Brief summary of admission note: This patient is a 61-year-old male who was admitted to the mental health unit with acute symptoms of depression with suicidal ideation. He had reported his symptoms were more overwhelming and acute. He was feeling hopeless and useless. He had thoughts of either shooting himself or cutting his arm. He reported low energy and poor sleep and poor appetite. ADLs had not been attended to. As the depression worsened he states he began hearing a voice saying "you can do it" referring to committing suicide. For full details please refer to my psychiatric evaluation dated 04/19/2017. Summary of hospital course: The patient was admitted to the mental health unit voluntarily. We reviewed his presenting symptoms and medication options. We decided to discontinue his Prozac and start Lexapro 10 mg daily. Lexapro was titrated to 20 mg daily during the course of the hospitalization. We continued Aricept 10 mg daily. Xanax was discontinued and he was provided Ativan 1 mg up to twice daily as needed. Melatonin 5 mg at bedtime was added to assist with sleep. We discontinued Elavil due to anticholinergic effects and he was uncertain if the medication was providing any benefit. Over the course of the hospitalization he reported progressive improvement. The patient did participate in a support meeting facilitated by social work. He feels that he is sufficiently stabilized and is appropriate for discharge. Mental status exam: The patient is an overweight male appearing his stated age. His hygiene and grooming are improved he is dressed in his own clothing. He ambulate with a walker. Eye contact is appropriate speech is fluent spontaneous nonpressured. He is more interactive and his affect is more euthymic in appearance. He denies having any suicidal or homicidal ideation intent or plan. He reports no auditory or visual hallucinations he endorses no specific delusions. There is no observed evidence of psychosis. He demonstrates no tangential thinking loose associations or flight of ideas. He chronically struggles with concentration and short-term memory. Insight and judgment have improved. He demonstrates no abnormal involuntary movements he demonstrates no verbal or physical aggressiveness. Impressions 1. Depressive disorder recurrent severe with psychosis, anxiety unspecified, alcohol use disorder in sustained remission 2. Medical comorbidities including atrial fibrillation, heart failure, COPD, history of CVA, diabetes, hyperlipidemia, hypertension, coronary artery disease Plan: The patient will be discharged from the mental health unit today to return home residing with his . Social work will arrange his outpatient mental health follow-up. He will follow up with his primary care physician regarding ongoing management of his other medical comorbidities. He will continue on Lexapro 20 mg daily Aricept 10 mg at bedtime melatonin 5 mg at bedtime Ativan 1 mg up to twice daily as needed for anxiety. He is instructed to no longer use Xanax. There is no imminent safety risk is appropriate for transition to outpatient care. He is instructed to return to the hospital with any acute safety concerns. Patient Condition at Discharge: Stable Plan - Discharge Summary Discharge Rx Participant: No New Discharge Prescriptions: New Escitalopram [Lexapro] 20 mg PO DAILY #30 tab LORazepam [Ativan] 1 mg PO BID PRN #30 tab PRN Reason: Anxiety, Agitation Melatonin 5 mg PO HS #30 tablet Nicotine 14Mg/24Hr Patch [Habitrol] 1 patch TRANSDERM DAILY #12 patch Continue Insulin Glulisine [Apidra] 20 units SQ AC-TID Insulin Glargine [Lantus] 20 unit SQ HS Albuterol Inhaler [Ventolin Hfa Inhaler] 2 puff INHALATION RT-Q4H PRN PRN Reason: Shortness Of Breath Aclidinium [place] [Tudorza Pressair] 1 puff INHALATION RT-Q12H HYDROcodone/APAP 7.5-325MG [[place] 7.5-325] 1 tab PO TID PRN PRN Reason: Pain Atorvastatin [Lipitor] 40 mg PO DAILY Magnesium Oxide [Magox 400] 400 mg PO BID metFORMIN HCL [Glucophage] 500 mg PO BID levETIRAcetam [Keppra] 500 mg PO BID amLODIPine [Norvasc] 10 mg PO DAILY Metoprolol Tartrate [Lopressor] 50 mg PO BID Potassium Chloride [Klor-Con Packets] 20 meq PO DAILY Warfarin [Coumadin] 5 mg PO DAILY Fenofibrate [Lofibra] 160 mg PO DAILY Nitroglycerin Sl Tabs [Nitrostat] 0.4 mg SUBLINGUAL Q5M PRN PRN Reason: Chest Pain Albuterol Nebulized [Ventolin Nebulized] 2.5 mg INHALATION RT-QID PRN PRN Reason: Shortness Of Breath Lisinopril [Zestril] 5 mg PO DAILY cloNIDine HCL [Catapres] 0.2 mg PO BID Docusate [Colace] 100 mg PO DAILY Donepezil [Aricept] 10 mg PO DAILY #30 tab Discontinued Cyclobenzaprine [Flexeril] 10 mg PO TID PRN PRN Reason: Muscle Spasm ALPRAZolam [Xanax] 1 mg PO TID PRN PRN Reason: Anxiety Amitriptyline HCl 25 mg PO DAILY FLUoxetine HCL [PROzac] 20 mg PO DAILY Zolpidem [Ambien] 5 mg PO HS Discharge Medication List Aclidinium [place] [Tudorza Pressair] 1 puff INHALATION RT-Q12H 05/05/16 [ History] Albuterol Inhaler [Ventolin Hfa Inhaler] 2 puff INHALATION RT-Q4H PRN 05/05/16 [ History] Atorvastatin [Lipitor] 40 mg PO DAILY 05/05/16 [History] Fenofibrate [Lofibra] 160 mg PO DAILY 05/05/16 [History] HYDROcodone/APAP 7.5-325MG [[place] 7.5-325] 1 tab PO TID PRN 05/05/16 [History] Insulin Glargine [Lantus] 20 unit SQ HS 05/05/16 [History] Insulin Glulisine [Apidra] 20 units SQ AC-TID 05/05/16 [History] Magnesium Oxide [Magox 400] 400 mg PO BID 05/05/16 [History] Metoprolol Tartrate [Lopressor] 50 mg PO BID 05/05/16 [History] Potassium Chloride [Klor-Con Packets] 20 meq PO DAILY 05/05/16 [History] Warfarin [Coumadin] 5 mg PO DAILY 05/05/16 [History] amLODIPine [Norvasc] 10 mg PO DAILY 05/05/16 [History] levETIRAcetam [Keppra] 500 mg PO BID 05/05/16 [History] metFORMIN HCL [Glucophage] 500 mg PO BID 05/05/16 [History] Albuterol Nebulized [Ventolin Nebulized] 2.5 mg INHALATION RT-QID PRN 04/18/17 [ History] Docusate [Colace] 100 mg PO DAILY 04/18/17 [History] Lisinopril [Zestril] 5 mg PO DAILY 04/18/17 [History] Nitroglycerin Sl Tabs [Nitrostat] 0.4 mg SUBLINGUAL Q5M PRN 04/18/17 [History] cloNIDine HCL [Catapres] 0.2 mg PO BID 04/18/17 [History] Donepezil [Aricept] 10 mg PO DAILY #30 tab 04/26/17 [Rx] Escitalopram [Lexapro] 20 mg PO DAILY #30 tab 04/26/17 [Rx] LORazepam [Ativan] 1 mg PO BID PRN #30 tab 04/26/17 [Rx] Melatonin 5 mg PO HS #30 tablet 04/26/17 [Rx] Nicotine 14Mg/24Hr Patch [Habitrol] 1 patch TRANSDERM DAILY #12 patch 04/26/17 [ Rx] Follow up Appointment(s)/Referral(s): Leo Noe MD [Primary Care Provider] - 1-2 days
[2017-04-26 09:25] VITALS: RESP 18
[2017-04-26 10:19] VITALS: BP 135/68; PULSE 65
[2017-04-26 12:40] LABS: Glucose,Whole Blood 84 mg/dL (75-99)
== END 2017-04-26 14:56 | disposition home or self-care (01) | DRG 885 ==
LOC: EC 16:47 → 3MHU 20:28
PROVIDERS: ADMIT Psychiatry & Neurology Psychiatry; ATTEND Psychiatry & Neurology Psychiatry
DX: F33.3 Major depressive disorder, recurrent, severe with psychotic symptoms (principal); E66.01 Morbid (severe) obesity due to excess calories; I11.0 Hypertensive heart disease with heart failure; I50.9 Heart failure, unspecified; R45.851 Suicidal ideations; I48.91 Unspecified atrial fibrillation; E11.9 Type 2 diabetes mellitus without complications; G40.909 Epilepsy, unspecified, not intractable, without status epilepticus; F10.11 Alcohol abuse, in remission; F41.9 Anxiety disorder, unspecified; I25.10 Atherosclerotic heart disease of native coronary artery without angina pectoris; E78.5 Hyperlipidemia, unspecified; G47.30 Sleep apnea, unspecified; J44.9 Chronic obstructive pulmonary disease, unspecified; E66.3 Overweight; Z62.810 Personal history of physical and sexual abuse in childhood; F17.200 Nicotine dependence, unspecified, uncomplicated; T38.3X6A Underdosing of insulin and oral hypoglycemic [antidiabetic] drugs, initial encounter; Z82.0 Family history of epilepsy and other diseases of the nervous system; Z79.899 Other long term (current) drug therapy; Z86.73 Personal history of transient ischemic attack (TIA), and cerebral infarction without residual deficits; Z88.1 Allergy status to other antibiotic agents; Z88.0 Allergy status to penicillin; Z88.8 Allergy status to other drugs, medicaments and biological substances; Z68.36 Body mass index [BMI] 36.0-36.9, adult; I25.2 Old myocardial infarction; Z79.4 Long term (current) use of insulin; Z79.891 Long term (current) use of opiate analgesic; Z79.01 Long term (current) use of anticoagulants; Z82.49 Family history of ischemic heart disease and other diseases of the circulatory system; Z82.5 Family history of asthma and other chronic lower respiratory diseases
CPT/HCPCS: 80053; 80061; 80306; 81003; 82075; 83036; 84443; 85025; 85027; 85610; 90686; 94640; 99285

== ENCOUNTER 2017-06-15 09:16 | Day surgery (SDC) | payer OTHER ==
[2017-06-15] MEDS ORDERED: LIDOCAINE 1% 20 ML VIAL (10MG/ML) FOR IV START INTRADERMA PRN (09:46)
[2017-06-15 10:20] VITALS: RESP 18; TEMP 98
[2017-06-15] MEDS: LACTATED RINGERS 1,000 ML IV SCH ×2 (10:20→10:45)
[2017-06-15 10:24] LABS: Glucose,Whole Blood 120 mg/dL (75-99)
[2017-06-15] MEDS ORDERED: GLYCOPYRROLATE 0.2 MG/ML 2 ML VIAL ONE (10:45)
[2017-06-15] MEDS ORDERED: PROPOFOL 10 MG/ML 20 ML VIAL IV ONE (10:45)
[2017-06-15] MEDS ORDERED: GLUCAGON 1 MG/ML VIAL ONE (10:45)
[2017-06-15] MEDS ORDERED: LIDOCAINE 1% INJ 10MG/ML (20 ML MDV) ONE (10:45)
--- NOTE | 2017-06-15 10:49 | P.GSHP ---
History of Present Illness H&P Date: 06/15/17 Chief Complaint: Screening colonoscopy Cyst 61-year-old male from Dr. Noe. Patient presents today for a screening colonoscopy. He has never colonoscopy before. Past Medical History Past Medical History: Atrial Fibrillation, Chest Pain / Angina, Heart Failure, COPD, CVA/TIA, Diabetes Mellitus, Hyperlipidemia, Hypertension, Memory Impairment, Myocardial Infarction (AL), Osteoarthritis (OA), Seizure Disorder, Sleep Apnea/CPAP/BIPAP Additional Past Medical History / Comment(s): TIA (1998), LAST SEIZURE 5 YRS AGO.,USES C-PAP MACHINE., BACK PAIN, USES CANE & WALKER., OXYGEN AT 2 L., STATES 1ST COLONOSCOPY. Last Myocardial Infarction Date:: 2009 History of Any Multi-Drug Resistant Organisms: None Reported Past Surgical History: Appendectomy, Heart Catheterization, Tonsillectomy Additional Past Surgical History / Comment(s): Middle finger to left hand surgery-removed piece of bone per patient. Past Anesthesia/Blood Transfusion Reactions: No Reported Reaction Smoking Status: Heavy tobacco smoker Additional Past Alcohol Use History / Comment(s): SMOKES 1 1/2 PPD. SMOKING FOR 40 YEARS. - Past Family History Mother Family Medical History: Asthma, Chest Pain / Angina, Congestive Heart Failure ( CHF), COPD, Dementia, Hyperlipidemia, Hypertension, Memory Impairment, Myocardial Infarction (AL), Pneumonia, Seizure Disorder, Sleep Apnea/CPAP/BIPAP Additional Family Medical History / Comment(s): Mother also had renal failure. Patient's mother at the age of 6666 years old. Father Family Medical History: Unable to Obtain Additional Family Medical History / Comment(s): Father has passed but patient unaware of his age when he passed. Medications and Allergies Home Medications Medication Instructions Recorded Confirmed Type Aclidinium [place] [Tudorza 1 puff INHALATION RT-Q12H 05/05/16 06/15/17 History Pressair] Albuterol Inhaler [Ventolin Hfa 2 puff INHALATION RT-Q4H PRN 05/05/16 06/15/17 History Inhaler] Atorvastatin [Lipitor] 40 mg PO DAILY 05/05/16 06/15/17 History Fenofibrate [Lofibra] 160 mg PO DAILY 05/05/16 06/15/17 History Insulin Glulisine [Apidra] 20 units SQ AC-TID 05/05/16 06/15/17 History Magnesium Oxide [Magox 400] 400 mg PO BID 05/05/16 06/15/17 History Metoprolol Tartrate [Lopressor] 50 mg PO BID 05/05/16 06/15/17 History Potassium Chloride [Klor-Con 20 meq PO DAILY 05/05/16 06/15/17 History Packets] levETIRAcetam [Keppra] 500 mg PO BID 05/05/16 06/15/17 History metFORMIN HCL [Glucophage] 500 mg PO BID 05/05/16 06/15/17 History Albuterol Nebulized [Ventolin 2.5 mg INHALATION RT-QID PRN 04/18/17 06/15/17 History Nebulized] Docusate [Colace] 100 mg PO DAILY 04/18/17 06/15/17 History Lisinopril [Zestril] 5 mg PO DAILY 04/18/17 06/15/17 History Nitroglycerin Sl Tabs [Nitrostat] 0.4 mg SUBLINGUAL Q5M PRN 04/18/17 06/15/17 History cloNIDine HCL [Catapres] 0.2 mg PO BID 04/18/17 06/15/17 History Donepezil [Aricept] 10 mg PO DAILY #30 tab 04/26/17 06/15/17 Rx Escitalopram [Lexapro] 20 mg PO DAILY #30 tab 04/26/17 06/15/17 Rx Insulin Glargine,Hum.rec.anlog 20 unit SQ DAILY #3 pen 04/26/17 06/15/17 Rx [Lantus Solostar] LORazepam [Ativan] 1 mg PO BID PRN #30 tab 04/26/17 06/15/17 Rx Melatonin 5 mg PO HS #30 tablet 04/26/17 06/15/17 Rx Furosemide [Lasix] 40 mg PO BID 05/20/17 06/15/17 History HYDROcodone/APAP 10-325MG [[place] 1 tab PO Q6H PRN 05/20/17 06/15/17 History 10-325] Warfarin [Coumadin] 5 mg PO PC-SUPPER 05/20/17 06/15/17 History Allergies Allergy/AdvReac Type Severity Reaction Status Date / Time aspirin Allergy Rash/Hives Verified 05/20/17 14:06 clarithromycin [From Biaxin] Allergy Rash/Hives Verified 05/20/17 14:06 Penicillins Allergy Rash/Hives Verified 05/20/17 14:06 Surgical - Exam Vital Signs Temp Pulse Resp BP Pulse Ox 98.0 F 60 18 167/83 94 L 06/15/17 10:18 06/15/17 10:18 06/15/17 10:18 06/15/17 10:18 06/15/17 10:18 - General well developed, no distress - Eyes PERRL - ENT normal pinna - Neck no masses - Respiratory normal expansion - Cardiovascular Rhythm: regular - Abdomen Abdomen: soft, non tender Results - Labs Abnormal Lab Results - Last 24 Hours (Table) 06/15/17 Range/Units 10:18 POC Glucose (mg/dL) 120 H (75-99) mg/dL Assessment and Plan Assessment: We'll perform screening colonoscopy
[2017-06-15 11:27] VITALS: BP 119/76; PULSE 89
--- NOTE | 2017-06-16 12:18 | P.OP ---
Date of Procedure: 06/15/17 Preoperative Diagnosis: Screening colonoscopy Postoperative Diagnosis: Diverticulosis Rectal polyp Left colon polyp Procedure(s) Performed: Colonoscopy Anesthesia: MAC Surgeon: Franko Gutierres Pathology: other (Rectal polypLeft colon polyp) Condition: stable Disposition: PACU Description of Procedure: The patient's placed on the endoscopy table lateral position. He received IV sedation. Digital rectal exam was performed which revealed no abnormalities. The prostate was symmetric without nodules. The flexible colonoscope was then placed patient anus and passed throughout the entire colon. The ileocecal valve was visualized. The cecum appeared normal. Scope was then withdrawn and remainder the ascending colon appeared normal. The transverse colon normal. At the 80 cm carlin the left colon a polyp was seen this removed with the snare. Scope was withdrawn remainder of the descending colon and sigmoid colon was examined. There was evidence of diverticular changes. Scope was then brought back the rectum and another polyp was seen and removed with the cold forcep. Scope was withdrawn for patient.
== END 2017-06-15 11:38 | disposition home or self-care (01) ==
LOC: ORWHC2ENDO 09:16
PROVIDERS: ATTEND Surgery
DX: Z12.11 Encounter for screening for malignant neoplasm of colon (principal); D12.6 Benign neoplasm of colon, unspecified; D12.8 Benign neoplasm of rectum; K57.30 Diverticulosis of large intestine without perforation or abscess without bleeding; I48.91 Unspecified atrial fibrillation; I20.9 Angina pectoris, unspecified; I11.0 Hypertensive heart disease with heart failure; I50.9 Heart failure, unspecified; J44.9 Chronic obstructive pulmonary disease, unspecified; E11.9 Type 2 diabetes mellitus without complications; E78.5 Hyperlipidemia, unspecified; R41.3 Other amnesia; M19.90 Unspecified osteoarthritis, unspecified site; G40.909 Epilepsy, unspecified, not intractable, without status epilepticus; G47.30 Sleep apnea, unspecified; M54.9 Dorsalgia, unspecified; I25.2 Old myocardial infarction; F17.210 Nicotine dependence, cigarettes, uncomplicated; Z99.89 Dependence on other enabling machines and devices; Z99.81 Dependence on supplemental oxygen; Z79.84 Long term (current) use of oral hypoglycemic drugs; Z79.4 Long term (current) use of insulin; Z79.899 Other long term (current) drug therapy; Z79.01 Long term (current) use of anticoagulants; Z86.73 Personal history of transient ischemic attack (TIA), and cerebral infarction without residual deficits; Z88.6 Allergy status to analgesic agent; Z88.1 Allergy status to other antibiotic agents; Z88.0 Allergy status to penicillin
CPT/HCPCS: 45380; 45385; 88305

== ENCOUNTER 2017-11-12 18:10 | Observation (INO) | payer OTHER ==
--- NOTE | 2017-11-12 18:48 | ED ---
General Adult HPI - General Source: patient, family, RN notes reviewed Mode of arrival: ambulatory Limitations: no limitations <Roel Guallpa - Last Filed: 11/12/17 20:08> <Wade Zapien - Last Filed: 11/12/17 22:22> - General Chief complaint: Chest Pain Stated complaint: Chest Pain (Cardiac History) Time Seen by Provider: 11/12/17 18:25 - History of Present Illness Initial comments: Chief complaint and history of present illness 62-year-old male here with family. The patient reports for the past 3 days he's been having chest discomfort. He states the pain starts in his left shoulder goes across the chest. He reports on questioning that when he took nitroglycerin did not help with the pain but did give him a headache. He reports she's had chest pain in the past and nitro noted usually works. He also has a productive cough that next the pain. By does states the pain without coughing. This been ongoing for 3 days. Reports there was one episode of sweats. (Roel Guallpa) - Related Data Home Medications Medication Instructions Recorded Confirmed Aclidinium [place] [Tudorza 1 puff INHALATION RT-Q12H 05/05/16 06/15/17 Pressair] Albuterol Inhaler [Ventolin Hfa 2 puff INHALATION RT-Q4H PRN 05/05/16 06/15/17 Inhaler] Atorvastatin [Lipitor] 40 mg PO DAILY 05/05/16 06/15/17 Fenofibrate [Lofibra] 160 mg PO DAILY 05/05/16 06/15/17 Insulin Glulisine [Apidra] 20 units SQ AC-TID 05/05/16 06/15/17 Magnesium Oxide [Magox 400] 400 mg PO BID 05/05/16 06/15/17 Metoprolol Tartrate [Lopressor] 50 mg PO BID 05/05/16 06/15/17 Potassium Chloride [Klor-Con 20 meq PO DAILY 05/05/16 06/15/17 Packets] levETIRAcetam [Keppra] 500 mg PO BID 05/05/16 06/15/17 metFORMIN HCL [Glucophage] 500 mg PO BID 05/05/16 06/15/17 Albuterol Nebulized [Ventolin 2.5 mg INHALATION RT-QID PRN 04/18/17 06/15/17 Nebulized] Docusate [Colace] 100 mg PO DAILY 04/18/17 06/15/17 Lisinopril [Zestril] 5 mg PO DAILY 04/18/17 06/15/17 Nitroglycerin Sl Tabs [Nitrostat] 0.4 mg SUBLINGUAL Q5M PRN 04/18/17 06/15/17 cloNIDine HCL [Catapres] 0.2 mg PO BID 04/18/17 06/15/17 Furosemide [Lasix] 40 mg PO BID 05/20/17 06/15/17 HYDROcodone/APAP 10-325MG [[place] 1 tab PO Q6H PRN 05/20/17 06/15/17 10-325] Warfarin [Coumadin] 5 mg PO PC-SUPPER 05/20/17 06/15/17 Previous Rx's Medication Instructions Recorded Donepezil [Aricept] 10 mg PO DAILY #30 tab 04/26/17 Escitalopram [Lexapro] 20 mg PO DAILY #30 tab 04/26/17 Insulin Glargine,Hum.rec.anlog 20 unit SQ DAILY #3 pen 04/26/17 [Lantus Solostar] LORazepam [Ativan] 1 mg PO BID PRN #30 tab 04/26/17 Melatonin 5 mg PO HS #30 tablet 04/26/17 Allergies Allergy/AdvReac Type Severity Reaction Status Date / Time aspirin Allergy Rash/Hives Verified 11/12/17 18:16 clarithromycin [From Biaxin] Allergy Rash/Hives Verified 11/12/17 18:16 Penicillins Allergy Rash/Hives Verified 11/12/17 18:16 Review of Systems ROS Other: All systems not noted in ROS Statement are negative. <Roel Guallpa - Last Filed: 11/12/17 20:08> ROS Other: All systems not noted in ROS Statement are negative. <Wade Zapien - Last Filed: 11/12/17 22:22> ROS Statement: Those systems with pertinent positive or pertinent negative responses have been documented in the HPI. Review of systems. No headache or visual acuity changes he does have chest discomfort and complains of shortness of breath. Patient has a past history of COPD and CHF. He still heavy smoker. The patient reports that coughing increases pain and shortness of breath. He points to just to the left of the sternum is area discomfort with coughing. Patient denies GI or complaints no nausea no vomiting no diarrhea. Patient's denying any direct injuries. No neuro deficits. Patient is not complaining of any depression. All systems were reviewed. Past medical problems significant for A. 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 He has had a cardiac cath but has never had a stent placed. Also osteoarthritis seizure disorder sleep apnea on CPAP. The patient's surgeries include appendectomy, heart catheterization with no stents placed. Tonsillectomy. And middle finger surgery. Family history noncontributory patient has ALLERGIES to aspirin, clarithromycin and penicillin. Patient's a heavy smoker. Mustache barron and fingers nicotine stained. Strongly encouraged to stop advised to ask his family physician to help him do so. (Roel Guallpa) Past Medical History Past Medical History: Atrial Fibrillation, Chest Pain / Angina, Heart Failure, COPD, CVA/TIA, Diabetes Mellitus, Hyperlipidemia, Hypertension, Memory Impairment, Myocardial Infarction (NE), Osteoarthritis (OA), Seizure Disorder, Sleep Apnea/CPAP/BIPAP Additional Past Medical History / Comment(s): TIA (1998), LAST SEIZURE 5 YRS AGO.,USES C-PAP MACHINE., BACK PAIN, USES CANE & WALKER., OXYGEN AT 2 L., STATES 1ST COLONOSCOPY. Last Myocardial Infarction Date:: 2009 History of Any Multi-Drug Resistant Organisms: None Reported Past Surgical History: Appendectomy, Heart Catheterization, Tonsillectomy Additional Past Surgical History / Comment(s): Middle finger to left hand surgery-removed piece of bone per patient. Past Anesthesia/Blood Transfusion Reactions: No Reported Reaction Past Psychological History: Anxiety, Depression Smoking Status: Heavy tobacco smoker Past Alcohol Use History: None Reported Past Drug Use History: None Reported - Past Family History Mother Family Medical History: Asthma, Chest Pain / Angina, Congestive Heart Failure ( CHF), COPD, Dementia, Hyperlipidemia, Hypertension, Memory Impairment, Myocardial Infarction (NE), Pneumonia, Seizure Disorder, Sleep Apnea/CPAP/BIPAP Additional Family Medical History / Comment(s): Mother also had renal failure. Patient's mother at the age of 6666 years old. Father Family Medical History: Unable to Obtain Additional Family Medical History / Comment(s): Father has passed but patient unaware of his age when he passed. <Roel Guallpa - Last Filed: 11/12/17 20:08> General Exam Limitations: no limitations <Roel Guallpa - Last Filed: 11/12/17 20:08> <Wade Zapien - Last Filed: 11/12/17 22:22> - General Exam Comments Initial Comments: General: The patient is awake and alert, here because a 3 days of chest discomfort. States it starts in the left shoulder radiates across the anterior chest. Does increase with coughing. Not so much with twisting or turning. Patient was complaint of shortness of breath. Vital signs temp 98.2 pulse 94 respiratory rate 18 pulse ox 97% room air the patient is on 2 L TIME. BLOOD PRESSURE 162/91 Eye: Pupils are equal, round and reactive to light, extra-ocular movements are intact ; there is normal conjunctiva bilaterally. No signs of icterus. Ears, nose, mouth and throat: There are moist mucous membranes and no oral lesions. Neck: The neck is supple, there is no tenderness. Cardiovascular: There is a regular rate and rhythm. No murmur, rub or gallop is appreciated. Respiratory: Patient has a strong productive sounding cough. States it hurts his left anterior chest wall when he does cough. Rare rales. Occasional wheeze. Gastrointestinal: Soft, non-distended, non-tender abdomen without masses or organomegaly noted. There is no rebound or guarding present. No CVA tenderness. Bowel sounds are unremarkable. Back: There is no tenderness to palpation in the midline. There is no obvious deformity. No rashes noted. Musculoskeletal: Normal ROM, no tenderness, There is no pedal edema. There is no calf tenderness or swelling. Sensation intact. Neurological: CN II-XII intact, There are no obvious motor or sensory deficits. Coordination appears grossly intact. Speech is normal. Skin: Skin is warm and dry and no rashes or lesions are noted. Psychiatric: Cooperative, mildly flat affect. No complaints of depression at this time. Past history of depression.. (Roel Guallpa) Vital Signs 11/12/17 11/12/17 11/12/17 18:14 18:37 18:43 Temperature 98.2 F Pulse Rate 94 Pulse Rate [ 76 Pulse Oximetery ] Respiratory 18 20 Rate Blood Pressure 162/91 O2 Sat by Pulse 97 Oximetry 11/12/17 11/12/17 20:00 21:40 Temperature 97.2 F L Pulse Rate 62 57 L Pulse Rate [ Pulse Oximetery ] Respiratory 18 18 Rate Blood Pressure 170/90 153/88 O2 Sat by Pulse 99 95 Oximetry EKG Findings - EKG Comments: EKG Findings:: EKG was done at 1820 showing sinus rhythm with PACs. Left axis, nonspecific intraventricular conduction delay. No acute ST elevation. Rate 91 , AL interval was 181 QRS 126 6 QT [address] Guallpa. EKG from [facility] is being requested. Unavailable at this time. KG from [facility] was evaluated at similar to today's EKG. The date of the [facility] EKG is dated Dr. Guallpa <Roel Guallpa - Last Filed: 11/12/17 20:08> Medical Decision Making - Lab Data Result diagrams: 11/12/17 18:30 11/12/17 18:30 <Roel Guallpa - Last Filed: 11/12/17 20:08> - Lab Data Result diagrams: 11/12/17 18:30 11/12/17 18:30 <Wade Zapien - Last Filed: 11/12/17 22:22> - Medical Decision Making Medical decision making; is a 62-year-old male here with his significant other. The patient's been having chest pain for 3 days. Complains of a painful cough. Also complains of shortness of breath. He took nitro at home which did not do anything for the pain but did give him a headache. EKG does not show any acute changes. He has had a history of A. fib in the past for which she's taking Coumadin. Labs show white count 12 hemoglobin 15 hematocrit of 48 with potassium 3.6. BUN 23 creatinine 0.6 with a GFR greater than 90. Glucose 188. Troponin 0.026. BNP 334 d-dimer 0.46. Chest x-ray is done AP and lateral view and reviewed by radiologist his impression is heart is enlarged. There is no heart failure. Lungs are clear of infiltrate. There is no pleural effusion. Bony thorax is intact. There are chest leads. Impression ;no acute cardiopulmonary processes. Mild cardiomegaly. As read by Dr. Ambrose (Roel Guallpa) This case was signed out to me by Dr. Guallpa who spent a lot of time talking to me regarding this patient's case. I personally examined this patient. Labwork reviewed, cardiac workup is unremarkable, patient is subtherapeutic on Coumadin. I was asked to follow the computed tomography scan evaluation of the aorta. Computed tomography scan does not show any evidence of aneurysm or dissection though there is atherosclerotic disease noted. After discussion with the patient, I agree that the patient's presenting symptoms are concerning and want further evaluation. I discussed admission for serial troponins and further cardiac workup with the patient and his , they are agreeable. Given INR of 1.2, patient will be given a dose of Lovenox in the emergency department. Currently, the patient is chest pain-free. 10:13 PM Case discussed with Dr. Roa who accepts admission. (Wade Zapien) - Lab Data Lab Results 11/12/17 11/12/17 11/12/17 Range/Units 18:30 18:30 18:30 WBC 12.4 H (3.8-10.6) k/uL RBC 5.52 (4.30-5.90) m/uL Hgb 15.9 (13.0-17.5) gm/dL Hct 48.0 (39.0-53.0) % MCV 87.0 (80.0-100.0) fL MCH 28.9 (25.0-35.0) pg MCHC 33.2 (31.0-37.0) g/dL RDW 12.9 (11.5-15.5) % Plt Count 397 (150-450) k/uL Neutrophils % 63 % Lymphocytes % 22 % Monocytes % 5 % Eosinophils % 8 % Basophils % 1 % Neutrophils # 7.8 H (1.3-7.7) k/uL Lymphocytes # 2.7 (1.0-4.8) k/uL Monocytes # 0.7 (0-1.0) k/uL Eosinophils # 1.0 H (0-0.7) k/uL Basophils # 0.1 (0-0.2) k/uL PT (9.0-12.0) sec INR (<1.2) APTT (22.0-30.0) sec D-Dimer (<0.60) mg/L FEU Sodium 139 (137-145) mmol/L Potassium 3.6 (3.5-5.1) mmol/L Chloride 101 (98-107) mmol/L Carbon Dioxide 27 (22-30) mmol/L Anion Gap 11 mmol/L BUN 23 H (9-20) mg/dL Creatinine 0.63 L (0.66-1.25) mg/dL Est GFR (CKD-EPI)AfAm >90 (>60 ml/min/1.73 sqM) Est GFR (CKD-EPI)NonAf >90 (>60 ml/min/1.73 sqM) Glucose 188 H (74-99) mg/dL Calcium 10.0 (8.4-10.2) mg/dL Magnesium 1.8 (1.6-2.3) mg/dL Total Bilirubin 0.5 (0.2-1.3) mg/dL AST 25 (17-59) U/L ALT 18 L (21-72) U/L Alkaline Phosphatase 74 (38-126) U/L Total Creatine Kinase 61 (55-170) U/L CK-MB (CK-2) 1.1 (0.0-2.4) ng/mL CK-MB (CK-2) Rel Index 1.8 Troponin I 0.026 (0.000-0.034) ng/mL NT-Pro-B Natriuret Pep pg/mL Total Protein 7.4 (6.3-8.2) g/dL Albumin 4.2 (3.5-5.0) g/dL 11/12/17 11/12/17 Range/Units 18:30 18:30 WBC (3.8-10.6) k/uL RBC (4.30-5.90) m/uL Hgb (13.0-17.5) gm/dL Hct (39.0-53.0) % MCV (80.0-100.0) fL MCH (25.0-35.0) pg MCHC (31.0-37.0) g/dL RDW (11.5-15.5) % Plt Count (150-450) k/uL Neutrophils % % Lymphocytes % % Monocytes % % Eosinophils % % Basophils % % Neutrophils # (1.3-7.7) k/uL Lymphocytes # (1.0-4.8) k/uL Monocytes # (0-1.0) k/uL Eosinophils # (0-0.7) k/uL Basophils # (0-0.2) k/uL PT 11.4 (9.0-12.0) sec INR 1.2 H (<1.2) APTT 24.8 (22.0-30.0) sec D-Dimer 0.46 (<0.60) mg/L FEU Sodium (137-145) mmol/L Potassium (3.5-5.1) mmol/L Chloride (98-107) mmol/L Carbon Dioxide (22-30) mmol/L Anion Gap mmol/L BUN (9-20) mg/dL Creatinine (0.66-1.25) mg/dL Est GFR (CKD-EPI)AfAm (>60 ml/min/1.73 sqM) Est GFR (CKD-EPI)NonAf (>60 ml/min/1.73 sqM) Glucose (74-99) mg/dL Calcium (8.4-10.2) mg/dL Magnesium (1.6-2.3) mg/dL Total Bilirubin (0.2-1.3) mg/dL AST (17-59) U/L ALT (21-72) U/L Alkaline Phosphatase (38-126) U/L Total Creatine Kinase (55-170) U/L CK-MB (CK-2) (0.0-2.4) ng/mL CK-MB (CK-2) Rel Index Troponin I (0.000-0.034) ng/mL NT-Pro-B Natriuret Pep 334 pg/mL Total Protein (6.3-8.2) g/dL Albumin (3.5-5.0) g/dL Disposition <Roel Guallpa - Last Filed: 11/12/17 20:08> Decision to Admit Reason: Admit from [facility] - Out of Hospital Transfer - Req. Specs Out of Hospital Transfer - Requested Specifics: Telemetry Unit <Wade Zapien - Last Filed: 11/12/17 22:22> Clinical Impression: Moderate risk chest pain Disposition: ADMITTED IP TO THIS HOSP Condition: Good Referrals: Leo Noe MD [Primary Care Provider] - 1-2 days
[2017-11-12 19:03] LABS: Basophils # (A) 0.1 k/uL (0-0.2); Basophils % (A) 1 %; Eosinophils % (A) 8 %; HGB 15.9 gm/dL (13.0-17.5); Lymphocytes # (A) 2.7 k/uL (1.0-4.8); Lymphocytes % (A) 22 %; MCH 28.9 pg (25.0-35.0); MCHC 33.2 g/dL (31.0-37.0); Mean Platelet Volume 8.6; Monocytes # (A) 0.7 k/uL (0-1.0); Monocytes % (A) 5 %; Neutrophils # (A) 7.8 k/uL (1.3-7.7); Neutrophils % (A) 63 %; Platelet Count 397 k/uL (150-450); RBC 5.52 m/uL (4.30-5.90); RDW 12.9 % (11.5-15.5); WBC 12.4 k/uL (3.8-10.6)
[2017-11-12 19:07] LABS: ALT 18 U/L (21-72); AST 25 U/L (17-59); Albumin 4.2 g/dL (3.5-5.0); Alkaline Phosphatase 74 U/L (38-126); Anion Gap 11 mmol/L; Blood Urea Nitrogen 23 mg/dL (9-20); Carbon Dioxide 27 mmol/L (22-30); Chloride 101 mmol/L (98-107); Glucose 188 mg/dL (74-99); Magnesium 1.8 mg/dL (1.6-2.3); Potassium 3.6 mmol/L (3.5-5.1); Sodium 139 mmol/L (137-145); Total Bilirubin 0.5 mg/dL (0.2-1.3); Total Protein 7.4 g/dL (6.3-8.2)
--- NOTE | 2017-11-12 19:12 | XR ---
EXAMINATION TYPE: XR chest 2V DATE OF EXAM: 11/12/2017 COMPARISON: NONE HISTORY: Chest pain TECHNIQUE: Frontal and lateral views of the chest are obtained. FINDINGS: Heart is enlarged. There is no heart failure. Lungs are clear of infiltrate. There is no p leural effusion. Bony thorax is intact. There are chest leads. IMPRESSION: No active cardiopulmonary disease. Mild cardiomegaly.
[2017-11-12 19:17] LABS: Creatine Kinase MB 1.1 ng/mL (0.0-2.4); Troponin I 0.026 ng/mL (0.000-0.034)
[2017-11-12] MEDS ORDERED: MORPHINE SULFATE 4 MG/ML SYRINGE IVP STA (19:35)
[2017-11-12 19:55] LABS: D-Dimer 0.46 mg/L FEU (<0.60); INR 1.2 (<1.2); Partial Thromboplastin Time 24.8 sec (22.0-30.0); Prothrombin Time 11.4 sec (9.0-12.0)
--- NOTE | 2017-11-12 21:49 | CT ---
EXAMINATION TYPE: CT angio thor/abd pel aorta DATE OF EXAM: 11/12/2017 COMPARISON: None HISTORY: Chest pain CT DLP: 2574.3 mGycm. Automated Exposure Control for Dose Reduction was Utilized. CONTRAST: CT scan of the thorax, abdomen and pelvis is performed with IV Contrast, patient injected with 100mL mL of Isovue 370. FINDINGS: There are 3-D post processed images. The lungs are clear of consolidation. Heart is enlarged. There is normal contrast opacification of th e pulmonary arteries. There are no filling defects. Thoracic aorta shows some atheromatous change. There is no evidence of thoracic aortic aneurysm or di ssection. Ascending aorta measures 3.7 cm. There is no pericardial effusion. There is no pleural effu paulina. There is patency of the celiac artery and superior mesenteric artery. There is patency of both renal arteries. There is mild atheromatous change in the abdominal aorta. There is no evidence of abdominal aortic aneurysm or dissection. There is patency of the common internal and external iliac arteries. There is bilateral patency of the femoral arteries. There is atheromatous change in the iliac arterie s. Liver spleen pancreas gallbladder appear normal. Bile ducts are not dilated. There is no adrenal mass . Kidneys show satisfactory contrast opacification. There is no hydronephrosis. There is no retroperi toneal adenopathy. There is no intestinal wall thickening. Bladder distends smoothly. There is no sig n of a bowel obstruction. Thoracic and lumbar spine appear intact. IMPRESSION: Atherosclerotic vascular disease. No evidence of aortic aneurysm or dissection. No evidence of pulmon del embolism. Cardiomegaly.
[2017-11-12] MEDS ORDERED: ENOXAPARIN 120 MG/0.8 ML SYRINGE SQ STA (22:09)
[2017-11-12] MEDS ORDERED: NALOXONE 0.4 MG/ML 1 ML VIAL IV PRN (22:14)
[2017-11-12] MEDS ORDERED: LORazepam 1 MG TAB PO PRN (22:19)
[2017-11-12] MEDS ORDERED: ALBUTEROL INHALER 60 PUFF/8 GM INHALER INHALATION PRN (22:19)
[2017-11-12] MEDS ORDERED: NITROGLYCERIN SL TABS 0.4 MG TAB SUBLINGUAL PRN (22:19)
[2017-11-12] MEDS ORDERED: ALBUTEROL NEBULIZED 2.5 MG/3 ML INHALATION PRN (22:19)
[2017-11-12 23:59] VITALS: BMI 34.5
[2017-11-13 00:56] LABS: Creatine Kinase MB 1.1 ng/mL (0.0-2.4); Troponin I 0.029 ng/mL (0.000-0.034)
[2017-11-13] MEDS: HYDROcodone/APAP 10-325MG 1 EACH TAB PO PRN ×2 (03:33→09:27)
[2017-11-13 06:35] LABS: Glucose,Whole Blood 130 mg/dL (75-99)
[2017-11-13 07:23] LABS: Creatine Kinase MB 1.1 ng/mL (0.0-2.4); Troponin I 0.03 ng/mL (0.000-0.034)
[2017-11-13] MEDS: IPRATROPIUM 0.5 MG/2.5 ML NEBU INHALATION SCH ×3 (07:47→15:02)
[2017-11-13] MEDS ORDERED: DOCUSATE 100 MG CAP PO SCH (09:00)
[2017-11-13] MEDS ORDERED: ATORVASTATIN 40 MG TAB PO SCH (09:00)
[2017-11-13] MEDS ORDERED: LISINOPRIL 5 MG TAB PO SCH (09:00)
[2017-11-13] MEDS ORDERED: levETIRAcetam 500 MG TAB PO SCH (09:00)
[2017-11-13] MEDS ORDERED: POTASSIUM CHLORIDE ER 20 MEQ TAB.ER PO SCH (09:00)
[2017-11-13] MEDS ORDERED: metFORMIN 500 MG TAB PO SCH (09:00)
[2017-11-13] MEDS ORDERED: INSULIN DETEMIR 100 UNIT/ML 10 ML VIAL SQ SCH ×3 (09:00→10:00)
[2017-11-13] MEDS ORDERED: ESCITALOPRAM 20 MG TAB PO SCH (09:00)
[2017-11-13] MEDS ORDERED: cloNIDine HCL 0.2 MG TAB PO SCH (09:00)
[2017-11-13] MEDS ORDERED: FUROSEMIDE 40 MG TAB PO SCH (09:00)
[2017-11-13] MEDS ORDERED: FENOFIBRATE 160 MG TAB PO SCH (09:00)
[2017-11-13] MEDS ORDERED: METOPROLOL TARTRATE 50 MG TAB PO SCH (09:00)
[2017-11-13] MEDS ORDERED: MAGNESIUM OXIDE 400 MG TAB PO SCH (09:00)
[2017-11-13] MEDS ORDERED: DONEPEZIL 10 MG TAB PO SCH (09:00)
[2017-11-13] MEDS: INSULIN ASPART 100 UNIT/ML 1 ML 10 ML VIAL SQ SCH ×2 (09:13→13:05)
[2017-11-13 11:52] LABS: Glucose,Whole Blood 159 mg/dL (75-99)
--- NOTE | 2017-11-13 12:03 | P.CRDCN ---
History of Present Illness History of present illness: Mr. Brandt is a pleasant 62-year-old male past medical history significant for COPD, chronic nicotine dependence, obstructive sleep apnea, hypertension, dyslipidemia, diabetes mellitus, paroxysmal atrial fibrillation on long-term anticoagulation and seizure disorder. He follows with Dr. Rosas in the office. We've been asked to see him in consultation for symptoms of chest pain. He states for the previous 3 days he has been coughing and bringing up yellowish sputum. He has also noted some shortness of breath as well as some precordial chest pain with radiation into the left shoulder. The pain sometimes is worse with cough is not related to exertion and is not reproducible on palpation. The chest pain has resolved since admission. He denies associated palpitations, dizziness, nausea, vomiting or diaphoresis. He denies PND or orthopnea. EKG reveals sinus mechanism with no acute ST or T wave abnormalities noted Chest x-ray negative for an acute cardiopulmonary process. CT of the thoracic aorta reveals atherosclerotic vascular disease with no evidence of aortic aneurysm or dissection and no pulmonary embolism noted. Laboratory data reviewed, hemoglobin 15.9, WBC 12.4, platelets 397, d-dimer 0.46 , INR 1.2, sodium 139, potassium 3.6, magnesium 1.8, creatinine 0.63, cardiac enzymes negative 3, NT proBNP 334. Current cardiac medications include atorvastatin 40 mg daily, fenofibrate 160 mg daily, Lasix 40 mg twice a day, lisinopril 5 mg daily, Lopressor 50 mg twice a day, Coumadin 5 mg daily, amlodipine 10 mg daily and Catapres 0.2 mg twice a day. At the time of my exam: CONSTITUTIONAL: Denies fever. Denies chills. EYES: Denies blurred vision. Denies vision changes. Denies eye pain. EARS, NOSE, MOUTH & THROAT: Denies headache. Denies sore throat. Denies ear pain. CARDIOVASCULAR: Denies chest pain. Denies shortness of breath. Denies orthopnea. Denies PND. Denies palpitations. RESPIRATORY: Complains of cough. GASTROINTESTINAL: Denies abdominal pain. Denies diarrhea. Denies constipation. Denies nausea. Denies vomiting. MUSCULOSKELETAL: Denies myalgias. INTEGUMENTARY: Denies pruitis. Denies rash. NEUROLOGIC: Denies numbness. Denies tingling. Denies weakness. PSYCHIATRIC: Denies anxiety. Denies depression. ENDOCRINE: Denies fatigue. Denies weight change. Denies polydipsia. Denies polyurina. GENITOURINARY: Denies burning, hematuria or urgency with micturation. HEMATOLOGIC: Denies history of anemia. Denies bleeding. Blood pressure 163/84 heart rate 66 afebrile maintaining oxygen saturation on room air GENERAL: This is a 62-year-old male in no apparent distress at the time of my examination. HEENT: Head is atraumatic, normocephalic. Pupils are equal, round. Sclerae anicteric. Conjunctivae are clear. Mucous membranes of the mouth are moist. Neck is supple. There is no jugular venous distention. No carotid bruit is heard. LUNGS: Expiratory wheezes noted throughout. No rales or rhonchi. No chest wall tenderness is noted on palpation or with deep breathing. HEART: Regular rate and rhythm without murmurs, rubs or gallops. S1 and S2 heard. ABDOMEN: Soft, nontender. Bowel sounds are heard. No organomegaly noted. EXTREMITIES: No evidence of peripheral edema and no calf tenderness noted. VASCULAR: Radial and dorsalis pedis pulses palpated, no evidence of clubbing. NEUROLOGIC: Patient is awake, alert and oriented x3. ASSESSMENT Chest pain, atypical. An acute coronary event has been ruled out with no EKG evidence of ischemia and negative cardiac enzymes Leukocytosis Hypertension Dyslipidemia Paroxysmal atrial fibrillation on long-term anticoagulation COPD Diabetes mellitus Obstructive sleep apnea Chronic nicotine dependence PLAN Acute coronary event has been ruled out no EKG evidence of ischemia and negative cardiac enzymes. Symptoms more suggestive of COPD exacerbation. Follow up with Dr. Rosas in the office in 2-3 weeks. Thank you kindly for this consultation. Nurse Practitioner note has been reviewed, I agree with a documented findings and plan of care. Patient was seen and examined. Past Medical History Past Medical History: Atrial Fibrillation, Chest Pain / Angina, Heart Failure, COPD, CVA/TIA, Diabetes Mellitus, Hyperlipidemia, Hypertension, Memory Impairment, Myocardial Infarction ([place]), Osteoarthritis (OA), Seizure Disorder, Sleep Apnea/CPAP/BIPAP Additional Past Medical History / Comment(s): TIA (1998), LAST SEIZURE 5 YRS AGO.,USES C-PAP MACHINE., BACK PAIN, USES CANE & WALKER., OXYGEN AT 2 L., STATES 1ST COLONOSCOPY. Last Myocardial Infarction Date:: 2009 History of Any Multi-Drug Resistant Organisms: None Reported Past Surgical History: Appendectomy, Heart Catheterization, Tonsillectomy Additional Past Surgical History / Comment(s): Middle finger to left hand surgery-removed piece of bone per patient. Past Anesthesia/Blood Transfusion Reactions: No Reported Reaction Past Psychological History: Anxiety, Depression Smoking Status: Heavy tobacco smoker Past Alcohol Use History: None Reported Additional Past Alcohol Use History / Comment(s): SMOKES 1 1/2 PPD. SMOKING FOR 40 YEARS. Past Drug Use History: None Reported Additional Drug Use History / Comment(s): Pt. denies. - Past Family History Mother Family Medical History: Asthma, Chest Pain / Angina, Congestive Heart Failure ( CHF), COPD, Dementia, Hyperlipidemia, Hypertension, Memory Impairment, Myocardial Infarction ([place]), Pneumonia, Seizure Disorder, Sleep Apnea/CPAP/BIPAP Additional Family Medical History / Comment(s): Mother also had renal failure. Patient's mother at the age of 6666 years old. Father Family Medical History: Unable to Obtain Additional Family Medical History / Comment(s): Father has passed but patient unaware of his age when he passed. Medications and Allergies Home Medications Medication Instructions Recorded Confirmed Type Aclidinium [place] [Tudorza 1 puff INHALATION RT-Q12H 05/05/16 11/13/17 History Pressair] Albuterol Inhaler [Ventolin Hfa 2 puff INHALATION RT-Q4H PRN 05/05/16 11/13/17 History Inhaler] Atorvastatin [Lipitor] 40 mg PO DAILY 05/05/16 11/13/17 History Fenofibrate [Lofibra] 160 mg PO DAILY 05/05/16 11/13/17 History Insulin Glulisine [Apidra] 20 units SQ AC-TID 05/05/16 11/13/17 History Magnesium Oxide [Magox 400] 400 mg PO BID 05/05/16 11/13/17 History Metoprolol Tartrate [Lopressor] 50 mg PO BID 05/05/16 11/13/17 History Potassium Chloride [Klor-Con 20 meq PO DAILY 05/05/16 11/13/17 History Packets] levETIRAcetam [Keppra] 500 mg PO BID 05/05/16 11/13/17 History metFORMIN HCL [Glucophage] 500 mg PO BID 05/05/16 11/13/17 History Albuterol Nebulized [Ventolin 2.5 mg INHALATION RT-QID PRN 04/18/17 11/13/17 History Nebulized] Docusate [Colace] 100 mg PO DAILY 04/18/17 11/13/17 History Lisinopril [Zestril] 5 mg PO DAILY 04/18/17 11/13/17 History Nitroglycerin Sl Tabs [Nitrostat] 0.4 mg SUBLINGUAL Q5M PRN 04/18/17 11/13/17 History cloNIDine HCL [Catapres] 0.2 mg PO BID 04/18/17 11/13/17 History Donepezil [Aricept] 10 mg PO DAILY #30 tab 04/26/17 11/13/17 Rx Escitalopram [Lexapro] 20 mg PO DAILY #30 tab 04/26/17 11/13/17 Rx Insulin Glargine,Hum.rec.anlog 20 unit SQ DAILY #3 pen 04/26/17 11/13/17 Rx [Lantus Solostar] LORazepam [Ativan] 1 mg PO BID PRN #30 tab 04/26/17 11/13/17 Rx Melatonin 5 mg PO HS #30 tablet 04/26/17 11/13/17 Rx Furosemide [Lasix] 40 mg PO BID 05/20/17 11/13/17 History HYDROcodone/APAP 10-325MG [[place] 1 tab PO Q6H PRN 05/20/17 11/13/17 History 10-325] Warfarin [Coumadin] 5 mg PO PC-SUPPER 05/20/17 11/13/17 History Albuterol Sulfate (Bottle) QID PRN 11/13/17 History [Ventolin] Methocarbamol [Robaxin] 500 mg PO QID 11/13/17 11/13/17 History amLODIPine [Norvasc] 10 mg PO HS 11/13/17 11/13/17 History Allergies Allergy/AdvReac Type Severity Reaction Status Date / Time aspirin Allergy Rash/Hives Verified 11/12/17 18:16 clarithromycin [From Biaxin] Allergy Rash/Hives Verified 11/12/17 18:16 Penicillins Allergy Rash/Hives Verified 11/12/17 18:16 Physical Exam Vitals: Vital Signs Temp Pulse Pulse Resp BP BP Pulse Ox 11/13/17 08:58 97.8 F 66 16 163/84 91 L 11/13/17 08:01 66 11/13/17 08:00 97.1 F L 63 20 156/90 93 L 11/13/17 07:51 68 11/13/17 04:00 97.0 F L 64 18 159/81 94 L 11/13/17 00:00 60 18 11/12/17 23:49 97.6 F 60 18 150/82 97 11/12/17 23:06 98.1 F 65 18 152/84 97 11/12/17 21:40 57 L 18 153/88 95 11/12/17 20:00 97.2 F L 62 18 170/90 99 11/12/17 18:43 20 11/12/17 18:37 76 11/12/17 18:14 98.2 F 94 18 162/91 97 Intake and Output 11/12/17 11/13/17 11/13/17 22:59 06:59 14:59 Intake Total 10 Balance 10 Intake: IV 10 0.9 10 Other: Voiding Method Toilet Toilet Urinal Urinal # Voids 1 Weight 115.666 kg 115.2 kg Results 11/12/17 18:30 11/12/17 18:30 Cardiac Enzymes 11/12/17 11/12/17 11/13/17 Range/Units 18:30 18:30 00:14 AST 25 (17-59) U/L CK-MB (CK-2) 1.1 1.1 (0.0-2.4) ng/mL Troponin I 0.026 0.029 (0.000-0.034) ng/mL 11/13/17 Range/Units 06:30 AST (17-59) U/L CK-MB (CK-2) 1.1 (0.0-2.4) ng/mL Troponin I 0.030 (0.000-0.034) ng/mL Coagulation 11/12/17 Range/Units 18:30 PT 11.4 (9.0-12.0) sec APTT 24.8 (22.0-30.0) sec CBC 11/12/17 Range/Units 18:30 WBC 12.4 H (3.8-10.6) k/uL RBC 5.52 (4.30-5.90) m/uL Hgb 15.9 (13.0-17.5) gm/dL Hct 48.0 (39.0-53.0) % Plt Count 397 (150-450) k/uL Comprehensive Metabolic Panel 11/12/17 Range/Units 18:30 Sodium 139 (137-145) mmol/L Potassium 3.6 (3.5-5.1) mmol/L Chloride 101 (98-107) mmol/L Carbon Dioxide 27 (22-30) mmol/L BUN 23 H (9-20) mg/dL Creatinine 0.63 L (0.66-1.25) mg/dL Glucose 188 H (74-99) mg/dL Calcium 10.0 (8.4-10.2) mg/dL AST 25 (17-59) U/L ALT 18 L (21-72) U/L Alkaline Phosphatase 74 (38-126) U/L Total Protein 7.4 (6.3-8.2) g/dL Albumin 4.2 (3.5-5.0) g/dL Current Medications Generic Name Dose Route Start Last Admin Trade Name Freq PRN Reason Stop Dose Admin Hydrocodone Bitart/Acetaminophen 1 each 11/12/17 22:19 11/13/17 09:27 [place] 10 PO 1 each Q6H PRN Administration Pain Albuterol Sulfate 2.5 mg 11/12/17 22:19 Ventolin Nebulized INHALATION RT-QID PRN Shortness Of Breath Atorvastatin Calcium 40 mg 11/13/17 09:00 11/13/17 09:22 Lipitor PO 40 mg DAILY [facility] Administration Clonidine 0.2 mg 11/13/17 09:00 11/13/17 09:22 Catapres PO 0.2 mg BID [facility] Administration Docusate Sodium 100 mg 11/13/17 09:00 11/13/17 09:22 Colace PO 100 mg DAILY [facility] Administration Donepezil HCl 10 mg 11/13/17 09:00 11/13/17 09:22 Aricept PO 10 mg DAILY [facility] Administration Escitalopram Oxalate 20 mg 11/13/17 09:00 11/13/17 09:22 Lexapro PO 20 mg DAILY [facility] Administration Fenofibrate 160 mg 11/13/17 09:00 11/13/17 09:21 Lofibra PO 160 mg DAILY [facility] Administration Furosemide 40 mg 11/13/17 09:00 11/13/17 09:21 Lasix PO 40 mg BID [facility] Administration Insulin Aspart 20 unit 11/13/17 07:30 11/13/17 09:13 Novolog SQ Not Given AC-TID [facility] Insulin Detemir 20 unit 11/13/17 10:00 11/13/17 10:07 Levemir SQ 20 unit DAILY [facility] Administration Ipratropium [place] 0.5 mg 11/13/17 08:00 11/13/17 07:47 Atrovent Nebulized INHALATION 0.5 mg RT-QID [facility] Administration Levetiracetam 500 mg 11/13/17 09:00 11/13/17 09:21 Keppra PO 500 mg BID [facility] Administration Lisinopril 5 mg 11/13/17 09:00 11/13/17 09:22 Zestril PO 5 mg DAILY [facility] Administration Lorazepam 1 mg 11/12/17 22:19 11/13/17 00:22 Ativan PO 1 mg BID PRN Administration Anxiety, Agitation Magnesium Oxide 400 mg 11/13/17 09:00 11/13/17 09:22 Mag-Ox PO 400 mg BID [facility] Administration Melatonin 5 mg 11/13/17 21:00 Melatonin PO HS [facility] Metformin HCl 500 mg 11/13/17 09:00 11/13/17 09:22 Glucophage PO 500 mg BID [facility] Administration Metoprolol Tartrate 50 mg 11/13/17 09:00 11/13/17 09:21 Lopressor PO 50 mg BID [facility] Administration Naloxone HCl 0.2 mg 11/12/17 22:14 Narcan IV Q2M PRN Opioid Reversal Nitroglycerin 0.4 mg 11/12/17 22:19 Nitrostat SUBLINGUAL Q5M PRN Chest Pain Potassium Chloride 20 meq 11/13/17 09:00 11/13/17 09:22 K-Dur 20 PO 20 meq DAILY [facility] Administration Warfarin Sodium 5 mg 11/13/17 18:30 Coumadin PO PC-SUPPER [facility] Intake and Output 11/12/17 11/13/17 11/13/17 22:59 06:59 14:59 Intake Total 10 Balance 10 Intake: IV 10 0.9 10 Other: Voiding Method Toilet Toilet Urinal Urinal # Voids 1 Weight 115.666 kg 115.2 kg 11/12/17 18:30 11/12/17 18:30
[2017-11-13 12:09] VITALS: BP 152/91; RESP 18; TEMP 97.5
[2017-11-13 12:32] VITALS: PULSE 66
--- NOTE | 2017-11-13 14:05 | P.HPIM ---
History of Present Illness 62-year-old admitted for chest pain rule out acute current syndromes which were ruled out. Patient was evaluated by cardiology. Patient has Beatrice'stuart Awan the chest pain from cough patient has been coughing a from about 3-4 days greenish sputum production patient can use to smoke. Chest x-ray and CAT scan did not show any pneumonic process. Patient will be treated for her drunk bronchitis doxycycline patient is cleared for discharge from cardiology perspective patient will be discharged today. Patient is on Coumadin for atrial fibrillation supper become Coumadin patient was asked to take 3 mg of Coumadin instructed milligrams INR rechecked in about 3-4 days. Patient has appointment with Dr. Noe primary care physician on Tuesday he'll follow Dr. Noe as an outpatient. Patient chest pain is musculoskeletal reproducible not associated with food not associated with the deep breathing denied any diaphoresis lightheadedness associated with that. Review of Systems REVIEW OF SYSTEMS: CONSTITUTIONAL: No fever, no malaise, no fatigue. HEENT: No recent visual problems or hearing problems. Denied any sore throat. CARDIOVASCULAR: No orthopnea, PND, no palpitations, no syncope. PULMONARY: No shortness of breath, no hemoptysis. GASTROINTESTINAL: No diarrhea, no nausea, no vomiting, no abdominal pain. Normoactive bowel sounds. NEUROLOGICAL: No headaches, no weakness, no numbness. HEMATOLOGICAL: Denies any bleeding or petechiae. GENITOURINARY: Denies any burning micturition, frequency, or urgency. MUSCULOSKELETAL/RHEUMATOLOGICAL: Denies any joint pain, swelling, or any muscle pain. ENDOCRINE: Denies any polyuria or polydipsia. The rest of the 14-point review of systems is negative. Past Medical History Past Medical History: Atrial Fibrillation, Chest Pain / Angina, Heart Failure, COPD, CVA/TIA, Diabetes Mellitus, Hyperlipidemia, Hypertension, Memory Impairment, Myocardial Infarction ([place]), Osteoarthritis (OA), Seizure Disorder, Sleep Apnea/CPAP/BIPAP Additional Past Medical History / Comment(s): TIA (1998), LAST SEIZURE 5 YRS AGO.,USES C-PAP MACHINE., BACK PAIN, USES CANE & WALKER., OXYGEN AT 2 L., STATES 1ST COLONOSCOPY. Last Myocardial Infarction Date:: 2009 History of Any Multi-Drug Resistant Organisms: None Reported Past Surgical History: Appendectomy, Heart Catheterization, Tonsillectomy Additional Past Surgical History / Comment(s): Middle finger to left hand surgery-removed piece of bone per patient. Past Anesthesia/Blood Transfusion Reactions: No Reported Reaction Past Psychological History: Anxiety, Depression Smoking Status: Heavy tobacco smoker Past Alcohol Use History: None Reported Additional Past Alcohol Use History / Comment(s): SMOKES 1 1/2 PPD. SMOKING FOR 40 YEARS. Past Drug Use History: None Reported Additional Drug Use History / Comment(s): Pt. denies. - Past Family History Mother Family Medical History: Asthma, Chest Pain / Angina, Congestive Heart Failure ( CHF), COPD, Dementia, Hyperlipidemia, Hypertension, Memory Impairment, Myocardial Infarction ([place]), Pneumonia, Seizure Disorder, Sleep Apnea/CPAP/BIPAP Additional Family Medical History / Comment(s): Mother also had renal failure. Patient's mother at the age of 6666 years old. Father Family Medical History: Unable to Obtain Additional Family Medical History / Comment(s): Father has passed but patient unaware of his age when he passed. Medications and Allergies Home Medications Medication Instructions Recorded Confirmed Type Albuterol Inhaler [Ventolin Hfa 2 puff INHALATION RT-Q4H PRN 05/05/16 11/13/17 History Inhaler] Atorvastatin [Lipitor] 40 mg PO HS 05/05/16 11/13/17 History Fenofibrate [Lofibra] 160 mg PO DAILY 05/05/16 11/13/17 History Insulin Glulisine [Apidra] 20 units SQ AC-TID 05/05/16 11/13/17 History Magnesium Oxide [Magox 400] 400 mg PO BID 05/05/16 11/13/17 History Metoprolol Tartrate [Lopressor] 50 mg PO BID 05/05/16 11/13/17 History Potassium Chloride [Klor-Con 20 meq PO HS 05/05/16 11/13/17 History Packets] levETIRAcetam [Keppra] 500 mg PO BID 05/05/16 11/13/17 History metFORMIN HCL [Glucophage] 500 mg PO BID 05/05/16 11/13/17 History Albuterol Nebulized [Ventolin 2.5 mg INHALATION RT-QID PRN 04/18/17 11/13/17 History Nebulized] Docusate [Colace] 100 mg PO DAILY 04/18/17 11/13/17 History Lisinopril [Zestril] 5 mg PO DAILY 04/18/17 11/13/17 History Nitroglycerin Sl Tabs [Nitrostat] 0.4 mg SUBLINGUAL Q5M PRN 04/18/17 11/13/17 History cloNIDine HCL [Catapres] 0.2 mg PO BID 04/18/17 11/13/17 History Donepezil [Aricept] 10 mg PO DAILY #30 tab 04/26/17 11/13/17 Rx Escitalopram [Lexapro] 20 mg PO DAILY #30 tab 04/26/17 11/13/17 Rx Insulin Glargine,Hum.rec.anlog 20 unit SQ DAILY #3 pen 04/26/17 11/13/17 Rx [Lantus Solostar] LORazepam [Ativan] 1 mg PO BID PRN #30 tab 04/26/17 11/13/17 Rx Melatonin 5 mg PO HS #30 tablet 04/26/17 11/13/17 Rx Furosemide [Lasix] 40 mg PO BID 05/20/17 11/13/17 History HYDROcodone/APAP 10-325MG [[place] 1 tab PO Q6H PRN 05/20/17 11/13/17 History 10-325] Budesonide-Formot 160-4.5 Mcg 2 puff INHALATION BID #1 inhaler 11/13/17 Rx [Symbicort 160-4.5 Mcg Inhaler] Doxycycline Monohydrate [Monodox] 100 mg PO BID 3 Days #6 cap 11/13/17 Rx Warfarin Sodium 3 mg PO HS #0 11/13/17 11/13/17 Rx amLODIPine [Norvasc] 10 mg PO HS 11/13/17 11/13/17 History Allergies Allergy/AdvReac Type Severity Reaction Status Date / Time aspirin Allergy Rash/Hives Verified 11/12/17 18:16 clarithromycin [From Biaxin] Allergy Rash/Hives Verified 11/12/17 18:16 Penicillins Allergy Rash/Hives Verified 11/12/17 18:16 Physical Exam Vitals: Vital Signs Temp Pulse Pulse Resp BP BP Pulse Ox 11/13/17 12:32 66 11/13/17 12:21 74 11/13/17 12:00 97.5 F L 62 18 152/91 97 11/13/17 08:58 97.8 F 66 16 163/84 91 L 11/13/17 08:01 66 11/13/17 08:00 97.1 F L 63 20 156/90 93 L 11/13/17 07:51 68 11/13/17 04:00 97.0 F L 64 18 159/81 94 L 11/13/17 00:00 60 18 11/12/17 23:49 97.6 F 60 18 150/82 97 11/12/17 23:06 98.1 F 65 18 152/84 97 11/12/17 21:40 57 L 18 153/88 95 11/12/17 20:00 97.2 F L 62 18 170/90 99 11/12/17 18:43 20 11/12/17 18:37 76 11/12/17 18:14 98.2 F 94 18 162/91 97 Intake and Output 11/12/17 11/13/17 11/13/17 22:59 06:59 14:59 Intake Total 10 Balance 10 Intake: IV 10 0.9 10 Other: Voiding Method Toilet Toilet Urinal Urinal # Voids 1 Weight 115.666 kg 115.2 kg PHYSICAL EXAMINATION: GENERAL: The patient is alert and oriented x3, not in any acute distress. Well developed, well nourished. HEENT: Pupils are round and equally reacting to light. EOMI. No scleral icterus. No conjunctival pallor. Normocephalic, atraumatic. No pharyngeal erythema. No thyromegaly. CARDIOVASCULAR: S1 and S2 present. No murmurs, rubs, or gallops. PULMONARY: Chest is clear to auscultation, no wheezing or crackles. ABDOMEN: Soft, nontender, nondistended, normoactive bowel sounds. No palpable organomegaly. MUSCULOSKELETAL: No joint swelling or deformity. EXTREMITIES: No cyanosis, clubbing, or pedal edema. NEUROLOGICAL: Gross neurological examination did not reveal any focal deficits. SKIN: No rashes. Results CBC & Chem 7: 11/12/17 18:30 11/12/17 18:30 Labs: Abnormal Lab Results - Last 24 Hours (Table) 11/12/17 11/12/17 11/12/17 Range/Units 18:30 18:30 18:30 WBC 12.4 H (3.8-10.6) k/uL Neutrophils # 7.8 H (1.3-7.7) k/uL Eosinophils # 1.0 H (0-0.7) k/uL INR 1.2 H (<1.2) BUN 23 H (9-20) mg/dL Creatinine 0.63 L (0.66-1.25) mg/dL Glucose 188 H (74-99) mg/dL POC Glucose (mg/dL) (75-99) mg/dL ALT 18 L (21-72) U/L Total Creatine Kinase (55-170) U/L 11/13/17 11/13/17 11/13/17 Range/Units 00:14 06:30 06:34 WBC (3.8-10.6) k/uL Neutrophils # (1.3-7.7) k/uL Eosinophils # (0-0.7) k/uL INR (<1.2) BUN (9-20) mg/dL Creatinine (0.66-1.25) mg/dL Glucose (74-99) mg/dL POC Glucose (mg/dL) 130 H (75-99) mg/dL ALT (21-72) U/L Total Creatine Kinase 51 L 45 L (55-170) U/L 11/13/17 Range/Units 11:51 WBC (3.8-10.6) k/uL Neutrophils # (1.3-7.7) k/uL Eosinophils # (0-0.7) k/uL INR (<1.2) BUN (9-20) mg/dL Creatinine (0.66-1.25) mg/dL Glucose (74-99) mg/dL POC Glucose (mg/dL) 159 H (75-99) mg/dL ALT (21-72) U/L Total Creatine Kinase (55-170) U/L Thrombosis Risk Factor Assmnt - Choose All That Apply Any of the Below Risk Factors Present?: No Other Risk Factors: Yes Each Risk Factor Represents 2 Points: Age 61-74 years Other congenital or acquired thrombophilia - If yes, enter type in comment: No Thrombosis Risk Factor Assessment Total Risk Factor Score: 2 Thrombosis Risk Factor Assessment Level: Low Risk Assessment and Plan Plan: -Chest pain musculoskeletal noncardiac secondary to cough. Rule out acute coronary syndromes patient was started on oxygen will be discharged today -Acute lateral bronchitis extensive counseling regarding nicotine cessation was provided -COPD without any acute exacerbation patient will be started on Symbicort as well patient has albuterol at home may require thiatropium History of CVA TIA in the past -Type 2 diabetes mellitus -Hyperlipidemia -Hypertension -Coronary artery disease -Obstructive sleep apnea -Proximal atrial fibrillation is on anticoagulation with Coumadin subtherapeutic on Coumadin Coumadin dosing changes as mentioned above -Leukocytosis secondary to bronchitis Patient will be discharged today rest of the medications will be continued as it is
--- NOTE | 2017-11-13 14:05 | P.DS ---
Providers Date of admission: 11/12/17 22:22 Attending physician: Kim Roa Consults: 11/12/17 23:26 Consult Physician Routine Consulting Provider: Sudhir Springer Consult Reason/Comments: Chest Pain Do you want consulting provider notified?: Yes, Notify in am Primary care physician: Leo Noe [place] [facility] Course: As mentioned in HPI Patient Condition at Discharge: Good Plan - Discharge Summary Discharge Rx Participant: No New Discharge Prescriptions: New Budesonide-Formot 160-4.5 Mcg [Symbicort 160-4.5 Mcg Inhaler] 2 puff INHALATION BID #1 inhaler Doxycycline Monohydrate [Monodox] 100 mg PO BID 3 Days #6 cap Continue Insulin Glulisine [Apidra] 20 units SQ AC-TID Albuterol Inhaler [Ventolin Hfa Inhaler] 2 puff INHALATION RT-Q4H PRN PRN Reason: Shortness Of Breath Atorvastatin [Lipitor] 40 mg PO HS Magnesium Oxide [Magox 400] 400 mg PO BID metFORMIN HCL [Glucophage] 500 mg PO BID levETIRAcetam [Keppra] 500 mg PO BID Metoprolol Tartrate [Lopressor] 50 mg PO BID Potassium Chloride [Klor-Con Packets] 20 meq PO HS Fenofibrate [Lofibra] 160 mg PO DAILY Nitroglycerin Sl Tabs [Nitrostat] 0.4 mg SUBLINGUAL Q5M PRN PRN Reason: Chest Pain Albuterol Nebulized [Ventolin Nebulized] 2.5 mg INHALATION RT-QID PRN PRN Reason: Shortness Of Breath Lisinopril [Zestril] 5 mg PO DAILY cloNIDine HCL [Catapres] 0.2 mg PO BID Docusate [Colace] 100 mg PO DAILY Escitalopram [Lexapro] 20 mg PO DAILY #30 tab LORazepam [Ativan] 1 mg PO BID PRN #30 tab PRN Reason: Anxiety, Agitation Melatonin 5 mg PO HS #30 tablet Donepezil [Aricept] 10 mg PO DAILY #30 tab Insulin Glargine,Hum.rec.anlog [Lantus Solostar] 20 unit SQ DAILY #3 pen HYDROcodone/APAP 10-325MG [[place] 10-325] 1 tab PO Q6H PRN PRN Reason: Pain Furosemide [Lasix] 40 mg PO BID amLODIPine [Norvasc] 10 mg PO HS Changed Warfarin Sodium 3 mg PO HS #0 Discharge Medication List Albuterol Inhaler [Ventolin Hfa Inhaler] 2 puff INHALATION RT-Q4H PRN 05/05/16 [ History] Atorvastatin [Lipitor] 40 mg PO HS 05/05/16 [History] Fenofibrate [Lofibra] 160 mg PO DAILY 05/05/16 [History] Insulin Glulisine [Apidra] 20 units SQ AC-TID 05/05/16 [History] Magnesium Oxide [Magox 400] 400 mg PO BID 05/05/16 [History] Metoprolol Tartrate [Lopressor] 50 mg PO BID 05/05/16 [History] Potassium Chloride [Klor-Con Packets] 20 meq PO HS 05/05/16 [History] levETIRAcetam [Keppra] 500 mg PO BID 05/05/16 [History] metFORMIN HCL [Glucophage] 500 mg PO BID 05/05/16 [History] Albuterol Nebulized [Ventolin Nebulized] 2.5 mg INHALATION RT-QID PRN 04/18/17 [ History] Docusate [Colace] 100 mg PO DAILY 04/18/17 [History] Lisinopril [Zestril] 5 mg PO DAILY 04/18/17 [History] Nitroglycerin Sl Tabs [Nitrostat] 0.4 mg SUBLINGUAL Q5M PRN 04/18/17 [History] cloNIDine HCL [Catapres] 0.2 mg PO BID 04/18/17 [History] Donepezil [Aricept] 10 mg PO DAILY #30 tab 04/26/17 [Rx] Escitalopram [Lexapro] 20 mg PO DAILY #30 tab 04/26/17 [Rx] Insulin Glargine,Hum.rec.anlog [Lantus Solostar] 20 unit SQ DAILY #3 pen [Rx] LORazepam [Ativan] 1 mg PO BID PRN #30 tab 04/26/17 [Rx] Melatonin 5 mg PO HS #30 tablet 04/26/17 [Rx] Furosemide [Lasix] 40 mg PO BID 05/20/17 [History] HYDROcodone/APAP 10-325MG [[place] 10-325] 1 tab PO Q6H PRN 05/20/17 [History] Budesonide-Formot 160-4.5 Mcg [Symbicort 160-4.5 Mcg Inhaler] 2 puff INHALATION BID #1 inhaler 11/13/17 [Rx] Doxycycline Monohydrate [Monodox] 100 mg PO BID 3 Days #6 cap 11/13/17 [Rx] Warfarin Sodium 3 mg PO HS #0 11/13/17 [Rx] amLODIPine [Norvasc] 10 mg PO HS 11/13/17 [History] Follow up Appointment(s)/Referral(s): Leo Noe MD [Primary Care Provider] - 3 Days Discharge Disposition: HOME SELF-CARE
[2017-11-13] MEDS ORDERED: WARFARIN 5 MG TAB PO SCH (18:30)
[2017-11-13] MEDS ORDERED: MELATONIN 5 MG TABLET PO SCH (21:00)
== END 2017-11-13 15:05 | disposition home or self-care (01) ==
LOC: EC 18:10 → 6SEL 22:22 → 3OBS 11-13 08:53
PROVIDERS: ADMIT Internal Medicine; ATTEND Internal Medicine
DX: J20.9 Acute bronchitis, unspecified (principal); J44.0 Chronic obstructive pulmonary disease with (acute) lower respiratory infection; R61 Generalized hyperhidrosis; I50.9 Heart failure, unspecified; I11.0 Hypertensive heart disease with heart failure; E11.9 Type 2 diabetes mellitus without complications; I48.0 Paroxysmal atrial fibrillation; E78.5 Hyperlipidemia, unspecified; I25.2 Old myocardial infarction; R41.3 Other amnesia; M19.90 Unspecified osteoarthritis, unspecified site; G47.33 Obstructive sleep apnea (adult) (pediatric); Z99.89 Dependence on other enabling machines and devices; G40.909 Epilepsy, unspecified, not intractable, without status epilepticus; M54.9 Dorsalgia, unspecified; Z99.81 Dependence on supplemental oxygen; F41.9 Anxiety disorder, unspecified; F32.9 Major depressive disorder, single episode, unspecified; I25.10 Atherosclerotic heart disease of native coronary artery without angina pectoris; Z79.4 Long term (current) use of insulin; Z79.51 Long term (current) use of inhaled steroids; Z79.899 Other long term (current) drug therapy; Z79.84 Long term (current) use of oral hypoglycemic drugs; Z79.01 Long term (current) use of anticoagulants; Z88.6 Allergy status to analgesic agent; Z88.1 Allergy status to other antibiotic agents; Z88.0 Allergy status to penicillin; F17.200 Nicotine dependence, unspecified, uncomplicated; Z86.73 Personal history of transient ischemic attack (TIA), and cerebral infarction without residual deficits; Z84.1 Family history of disorders of kidney and ureter
CPT/HCPCS: 99285; 96374 ×2; 96372; 96376; 36415; 94640 ×2; 93005; 85379; 83880; 80053; 82550 ×2; 82553 ×2; 83735; 84484 ×2; 85025; 85610; 85730; 71046; 71275; 74174; G0378 ×3; J2270; J1650; Q9967

== ENCOUNTER 2018-06-22 00:40 | Emergency (ER) | payer OTHER ==
[2018-06-22 00:58] VITALS: RESP 18
[2018-06-22 01:19] LABS: Amphetamine Screen,Urine Not Detected (NotDetected); Barbiturate Screen,Urine Not Detected (NotDetected); Benzodiazepines Screen,Urine Detected (NotDetected); Cocaine Screen,Urine Not Detected (NotDetected); Methadone Screen, Urine Not Detected (NotDetected); Opiate Screen,Urine Not Detected (NotDetected); Oxycodone Screen, Urine Not Detected (NotDetected); Phencyclidine Screen,Urine Not Detected (NotDetected); Tricyclic Antidepressant,Urine Detected (NotDetected); Urn Cannabinoid Scrn Not Detected (NotDetected)
--- NOTE | 2018-06-22 03:48 | ED ---
General Adult HPI - General Source: EMS, RN notes reviewed, old records reviewed Mode of arrival: EMS <Joaquín Kasper - Last Filed: 06/22/18 04:27> <Alex Harry - Last Filed: 06/22/18 05:19> <ReinaldoAnibal - Last Filed: 06/22/18 14:50> - General Chief complaint: Psychiatric Symptoms Stated complaint: Mental health Time Seen by Provider: 06/22/18 00:53 - History of Present Illness Initial comments: 62-year-old male patient passed no history of depression presents to ED with suicidal ideations. Patient reports that he was at home and was having suicidal ideations about stabbing himself with a knife. Patient reports that he called 911 to be transported to Hospital to prevent himself from doing this. Patient states that he does currently still having suicidal ideations. Patient denies plan to hurt other people. Patient states that he has not done anything to hurt himself today. Patient denies any other complaints. Systemic: Pt denies fatigue, myalgia, fever/chills, rash. Pt denies weakness, night sweats, weight loss. Neuro: Pt denies headache, visual disturbances, syncope or pre-syncope. HEENT: Pt denies ocular discharge or irritation, otalgia, rhinorrhea, pharyngitis or notable lymphadenopathy. Cardiopulmonary: Pt denies chest pain, SOB, heart palpitations, dyspnea on exertion. Abdominal/GI: Pt denies abdominal pain, n/v/d. : Pt denies dysuria, burning w/ urination, frequency/urgency. Denies new onset urinary or bowel incontinence. MSK: Pt denies myalgia, loss of strength or function in extremities. Neuro: Pt denies new onset weakness, paresthesias. (Joaquín Kasper) - Related Data Home Medications Medication Instructions Recorded Confirmed Albuterol Inhaler [Ventolin Hfa 2 puff INHALATION RT-Q4H PRN 05/05/16 06/22/18 Inhaler] Atorvastatin [Lipitor] 40 mg PO HS 05/05/16 06/22/18 Fenofibrate [Lofibra] 160 mg PO DAILY 05/05/16 06/22/18 Insulin Glulisine [Apidra] 20 units SQ AC-TID 05/05/16 06/22/18 Magnesium Oxide [Magox 400] 400 mg PO BID 05/05/16 06/22/18 Metoprolol Tartrate [Lopressor] 50 mg PO BID 05/05/16 06/22/18 Potassium Chloride [Klor-Con 20 meq PO HS 05/05/16 06/22/18 Packets] levETIRAcetam [Keppra] 500 mg PO BID 05/05/16 06/22/18 metFORMIN HCL [Glucophage] 500 mg PO BID 05/05/16 06/22/18 Albuterol Nebulized [Ventolin 2.5 mg INHALATION RT-QID PRN 04/18/17 06/22/18 Nebulized] Docusate [Colace] 100 mg PO DAILY 04/18/17 06/22/18 Lisinopril [Zestril] 5 mg PO DAILY 04/18/17 06/22/18 Nitroglycerin Sl Tabs [Nitrostat] 0.4 mg SUBLINGUAL Q5M PRN 04/18/17 06/22/18 cloNIDine HCL [Catapres] 0.2 mg PO BID 04/18/17 06/22/18 Furosemide [Lasix] 40 mg PO BID 05/20/17 06/22/18 HYDROcodone/APAP 10-325MG [[place] 1 tab PO Q6H PRN 05/20/17 06/22/18 10-325] amLODIPine [Norvasc] 10 mg PO HS 11/13/17 06/22/18 Previous Rx's Medication Instructions Recorded Donepezil [Aricept] 10 mg PO DAILY #30 tab 04/26/17 Escitalopram [Lexapro] 20 mg PO DAILY #30 tab 04/26/17 Insulin Glargine,Hum.rec.anlog 20 unit SQ DAILY #3 pen 04/26/17 [Lantus Solostar] LORazepam [Ativan] 1 mg PO BID PRN #30 tab 04/26/17 Melatonin 5 mg PO HS #30 tablet 04/26/17 Budesonide-Formot 160-4.5 Mcg 2 puff INHALATION BID #1 inhaler 11/13/17 [Symbicort 160-4.5 Mcg Inhaler] Doxycycline Monohydrate [Monodox] 100 mg PO BID 3 Days #6 cap 11/13/17 Warfarin Sodium 3 mg PO HS #0 11/13/17 Allergies Allergy/AdvReac Type Severity Reaction Status Date / Time aspirin Allergy Rash/Hives Verified 06/22/18 00:58 clarithromycin [From Biaxin] Allergy Rash/Hives Verified 06/22/18 00:58 Penicillins Allergy Rash/Hives Verified 06/22/18 00:58 Review of Systems ROS Other: All systems not noted in ROS Statement are negative. <Joaquín Kasper - Last Filed: 06/22/18 04:27> ROS Other: All systems not noted in ROS Statement are negative. <Alex Harry - Last Filed: 06/22/18 05:19> ROS Other: All systems not noted in ROS Statement are negative. <Anibal Najera - Last Filed: 06/22/18 14:50> ROS Statement: Those systems with pertinent positive or pertinent negative responses have been documented in the HPI. Past Medical History Past Medical History: Atrial Fibrillation, Chest Pain / Angina, Heart Failure, COPD, CVA/TIA, Diabetes Mellitus, Hyperlipidemia, Hypertension, Memory Impairment, Myocardial Infarction ([place]), Osteoarthritis (OA), Seizure Disorder, Sleep Apnea/CPAP/BIPAP Additional Past Medical History / Comment(s): TIA (1998), LAST SEIZURE 5 YRS AGO.,USES C-PAP MACHINE., BACK PAIN, USES CANE & WALKER., OXYGEN AT 2 L., STATES 1ST COLONOSCOPY. Last Myocardial Infarction Date:: 2009 History of Any Multi-Drug Resistant Organisms: None Reported Past Surgical History: Appendectomy, Heart Catheterization, Tonsillectomy Additional Past Surgical History / Comment(s): Middle finger to left hand surgery-removed piece of bone per patient. Past Anesthesia/Blood Transfusion Reactions: No Reported Reaction Past Psychological History: Anxiety, Depression Smoking Status: Heavy tobacco smoker Past Alcohol Use History: None Reported Past Drug Use History: None Reported - Past Family History Mother Family Medical History: Asthma, Chest Pain / Angina, Congestive Heart Failure (CHF), COPD, Dementia, Hyperlipidemia, Hypertension, Memory Impairment, Myocardial Infarction ([place]), Pneumonia, Seizure Disorder, Sleep Apnea/CPAP/BIPAP Additional Family Medical History / Comment(s): Mother also had renal failure. Patient's mother at the age of 6666 years old. Father Family Medical History: Unable to Obtain Additional Family Medical History / Comment(s): Father has passed but patient unaware of his age when he passed. <Joaquín Kasper - Last Filed: 06/22/18 04:27> Course <Alex Harry - Last Filed: 06/22/18 05:19> Vital Signs 06/22/18 06/22/18 06/22/18 00:48 07:37 13:09 Temperature 98.4 F 97.9 F 98.0 F Pulse Rate 69 68 66 Respiratory 18 18 18 Rate Blood Pressure 133/79 139/81 146/88 O2 Sat by Pulse 100 94 L 95 Oximetry - Reevaluation(s) Reevaluation #1: 06/22/18 05:20 Patient evaluated by myself. He is presented emergency department with de pression suicidal ideation and plan. Medically cleared by previous physician. I did evaluate this patient, he continues to have suicidal thoughts. I completed clinical certification. Patient will likely be transferred for further psychiatric evaluation and treatment (Alex Harry) Medical Decision Making <Joaquín Kasper - Last Filed: 06/22/18 04:27> - Lab Data Result diagrams: 06/22/18 07:30 06/22/18 06:48 <Anibal Najera - Last Filed: 06/22/18 14:50> - Medical Decision Making Pt signed out to attending physician Dr. Larry pending EPS evaluation. (Joaquín Kasper) Patient was seen by mental health services who recommends discharge at this time. Patient was also seen by psychiatrist who did a negative clinical certificate. [facility] did evaluate patient and has plan for follow-up for [facility] a nd tomorrow. Patient denies suicidal ideation at this time and does contract for safety. (Anibal Najera) - Lab Data Lab Results 06/22/18 06/22/18 06/22/18 Range/Units 00:32 04:28 06:48 WBC (3.8-10.6) k/uL RBC (4.30-5.90) m/uL Hgb (13.0-17.5) gm/dL Hct (39.0-53.0) % MCV (80.0-100.0) fL MCH (25.0-35.0) pg MCHC (31.0-37.0) g/dL RDW (11.5-15.5) % Plt Count (150-450) k/uL Neutrophils % % Lymphocytes % % Monocytes % % Eosinophils % % Basophils % % Neutrophils # (1.3-7.7) k/uL Lymphocytes # (1.0-4.8) k/uL Monocytes # (0-1.0) k/uL Eosinophils # (0-0.7) k/uL Basophils # (0-0.2) k/uL Sodium 139 (137-145) mmol/L Potassium 4.2 (3.5-5.1) mmol/L Chloride 105 (98-107) mmol/L Carbon Dioxide 26 (22-30) mmol/L Anion Gap 8 mmol/L BUN 25 H (9-20) mg/dL Creatinine 0.62 L (0.66-1.25) mg/dL Est GFR (CKD-EPI)AfAm >90 (>60 ml/min/1.73 sqM) Est GFR (CKD-EPI)NonAf >90 (>60 ml/min/1.73 sqM) Glucose 134 H (74-99) mg/dL POC Glucose (mg/dL) 122 H (75-99) mg/dL POC Glu [employer] ID Johanna Cruz Calcium 9.5 (8.4-10.2) mg/dL Urine Opiates Screen Not Detected (NotDetected) Ur Oxycodone Screen Not Detected (NotDetected) Urine Methadone Screen Not Detected (NotDetected) Ur Propoxyphene Screen Not Detected (NotDetected) Ur Barbiturates Screen Not Detected (NotDetected) U Tricyclic Antidepress Detected H (NotDetected) Ur Phencyclidine Scrn Not Detected (NotDetected) Ur Amphetamines Screen Not Detected (NotDetected) U Methamphetamines Scrn Not Detected (NotDetected) U Benzodiazepines Scrn Detected H (NotDetected) Urine Cocaine Screen Not Detected (NotDetected) U Marijuana (THC) Screen Not Detected (NotDetected) 06/22/18 06/22/18 Range/Units 07:30 13:19 WBC 11.8 H (3.8-10.6) k/uL RBC 5.54 (4.30-5.90) m/uL Hgb 15.6 (13.0-17.5) gm/dL Hct 48.3 (39.0-53.0) % MCV 87.2 (80.0-100.0) fL MCH 28.1 (25.0-35.0) pg MCHC 32.2 (31.0-37.0) g/dL RDW 14.2 (11.5-15.5) % Plt Count 317 (150-450) k/uL Neutrophils % 61 % Lymphocytes % 21 % Monocytes % 5 % Eosinophils % 11 % Basophils % 1 % Neutrophils # 7.2 (1.3-7.7) k/uL Lymphocytes # 2.4 (1.0-4.8) k/uL Monocytes # 0.6 (0-1.0) k/uL Eosinophils # 1.3 H (0-0.7) k/uL Basophils # 0.1 (0-0.2) k/uL Sodium (137-145) mmol/L Potassium (3.5-5.1) mmol/L Chloride (98-107) mmol/L Carbon Dioxide (22-30) mmol/L Anion Gap mmol/L BUN (9-20) mg/dL Creatinine (0.66-1.25) mg/dL Est GFR (CKD-EPI)AfAm (>60 ml/min/1.73 sqM) Est GFR (CKD-EPI)NonAf (>60 ml/min/1.73 sqM) Glucose (74-99) mg/dL POC Glucose (mg/dL) 215 H (75-99) mg/dL POC Glu [employer] ID Rell Boykin Calcium (8.4-10.2) mg/dL Urine Opiates Screen (NotDetected) Ur Oxycodone Screen (NotDetected) Urine Methadone Screen (NotDetected) Ur Propoxyphene Screen (NotDetected) Ur Barbiturates Screen (NotDetected) U Tricyclic Antidepress (NotDetected) Ur Phencyclidine Scrn (NotDetected) Ur Amphetamines Screen (NotDetected) U Methamphetamines Scrn (NotDetected) U Benzodiazepines Scrn (NotDetected) Urine Cocaine Screen (NotDetected) U Marijuana (THC) Screen (NotDetected) Disposition <Joaquín Kasper - Last Filed: 06/22/18 04:27> <Alex Harry - Last Filed: 06/22/18 05:19> Is patient prescribed a controlled substance at d/c from ED?: No Time of Disposition: 14:50 <Anibal Najera - Last Filed: 06/22/18 14:50> Clinical Impression: Suicidal ideation, Depression Disposition: HOME SELF-CARE Condition: Stable Instructions (If sedation given, give patient instructions): Depression (ED), Suicide Prevention (ED) Additional Instructions: Please follow-up with mental health services tonight and tomorrow as planned. Please also follow-up with primary care physician in the next day or 2 for recheck. Return for thoughts of self-harm or harm to others, worsening symptoms or other concerns. Referrals: Leo Noe MD [Primary Care Provider] - 1-2 days
[2018-06-22 04:29] LABS: Glucose,Whole Blood 122 mg/dL (75-99)
[2018-06-22 07:19] LABS: Anion Gap 8 mmol/L; Blood Urea Nitrogen 25 mg/dL (9-20); Calcium 9.5 mg/dL (8.4-10.2); Carbon Dioxide 26 mmol/L (22-30); Chloride 105 mmol/L (98-107); Glucose 134 mg/dL (74-99); Potassium 4.2 mmol/L (3.5-5.1); Sodium 139 mmol/L (137-145)
[2018-06-22 07:41] LABS: Basophils # (A) 0.1 k/uL (0-0.2); Basophils % (A) 1 %; Eosinophils # (A) 1.3 k/uL (0-0.7); Eosinophils % (A) 11 %; HCT 48.3 % (39.0-53.0); HGB 15.6 gm/dL (13.0-17.5); Lymphocytes # (A) 2.4 k/uL (1.0-4.8); Lymphocytes % (A) 21 %; MCH 28.1 pg (25.0-35.0); MCHC 32.2 g/dL (31.0-37.0); MCV 87.2 fL (80.0-100.0); Mean Platelet Volume 7.4; Monocytes # (A) 0.6 k/uL (0-1.0); Monocytes % (A) 5 %; Neutrophils # (A) 7.2 k/uL (1.3-7.7); Neutrophils % (A) 61 %; Platelet Count 317 k/uL (150-450); RBC 5.54 m/uL (4.30-5.90); RDW 14.2 % (11.5-15.5); WBC 11.8 k/uL (3.8-10.6)
[2018-06-22 13:11] VITALS: TEMP 98
[2018-06-22] MEDS ORDERED: ACETAMINOPHEN TAB 325 MG TAB PO STA (13:16)
[2018-06-22 13:20] LABS: Glucose,Whole Blood 215 mg/dL (75-99)
--- NOTE | 2018-06-22 13:47 | P.PN ---
Progress Note - Text Progress Note Date: 06/22/18 Initial comments: 62-year-old male patient passed no history of depression presents to ED with suicidal ideations. Patient reports that he was at home and was having suicidal ideations about stabbing himself with a knife. Patient reports that he called 911 to be transported to Hospital to prevent himself from doing this. Patient states that he does currently not having suicidal ideation. Patient denies plan to hurt other people. Patient states that he has not done anything to hurt himself today. Patient denies any other complaints. The patient presents alert, pleasant, and cooperative. There calmly seated without any agitated behavior. [He] reports that [his] mood is good. Affect is congruent and euthymic. [He] deny having any suicidal or homicidal ideation intent or plan. [He] denies any auditory or visual hallucinations. There is no evidence of any delusional thought content. [He has] thought process is linear and goal-directed. [His] speech is fluent and nonpressured. [His] memory and concentration is grossly intact for the purposes of this session. Negative clinical circumflex was filled out and follow up and chart he is able to go home with plans for follow-up with a ACT team
[2018-06-22 15:29] VITALS: BP 171/93; PULSE 65
== END 2018-06-22 15:20 | disposition home or self-care (01) ==
LOC: EC 00:40
DX: F32.9 Major depressive disorder, single episode, unspecified (principal); R45.851 Suicidal ideations; I11.0 Hypertensive heart disease with heart failure; I50.9 Heart failure, unspecified; J44.9 Chronic obstructive pulmonary disease, unspecified; I48.91 Unspecified atrial fibrillation; E11.9 Type 2 diabetes mellitus without complications; I25.2 Old myocardial infarction; M19.90 Unspecified osteoarthritis, unspecified site; G40.909 Epilepsy, unspecified, not intractable, without status epilepticus; G47.30 Sleep apnea, unspecified; Z99.89 Dependence on other enabling machines and devices; F41.9 Anxiety disorder, unspecified; F17.200 Nicotine dependence, unspecified, uncomplicated; Z86.73 Personal history of transient ischemic attack (TIA), and cerebral infarction without residual deficits; Z79.4 Long term (current) use of insulin; Z79.899 Other long term (current) drug therapy; Z88.0 Allergy status to penicillin; Z88.1 Allergy status to other antibiotic agents; Z88.6 Allergy status to analgesic agent; Z95.818 Presence of other cardiac implants and grafts
CPT/HCPCS: 36415; 80048; 80306; 85025; 99285

== ENCOUNTER 2018-06-30 06:52 | Day surgery (SDC) | payer OTHER ==
[2018-06-28 09:57] VITALS: BMI 37.0
[2018-06-30] MEDS ORDERED: LIDOCAINE-D5W PMX 2G/250ML 2,000 MG in DEXTROSE/WATER 1 250ML.BAG IV ONE (07:07)
[2018-06-30] MEDS ORDERED: LACTATED RINGERS 1,000 ML IV ONE ×2 (07:07)
[2018-06-30 07:16] VITALS: TEMP 98.3
[2018-06-30 07:27] LABS: Glucose,Whole Blood 173 mg/dL (75-99)
[2018-06-30] MEDS ORDERED: PROPOFOL 10 MG/ML 20 ML VIAL IV ONE (07:44)
--- NOTE | 2018-06-30 07:50 | P.GSHP ---
History of Present Illness H&P Date: 06/30/18 Chief Complaint: History of colon polyps This is a 62-year-old male who presents today for colonoscopy. Patient has history of colon polyps. Past Medical History Past Medical History: Atrial Fibrillation, Chest Pain / Angina, Heart Failure, COPD, CVA/TIA, Diabetes Mellitus, Hyperlipidemia, Hypertension, Memory Impairment, Myocardial Infarction ([place]), Osteoarthritis (OA), Seizure Disorder, Sleep Apnea/CPAP/BIPAP Additional Past Medical History / Comment(s): TIA (1998), LAST SEIZURE 5 YRS AGO.,USES C-PAP MACHINE., BACK PAIN, USES CANE & WALKER., OXYGEN AT 2 L., STATES 1ST COLONOSCOPY. Last Myocardial Infarction Date:: 2009 History of Any Multi-Drug Resistant Organisms: None Reported Past Surgical History: Appendectomy, Heart Catheterization, Tonsillectomy Additional Past Surgical History / Comment(s): Middle finger to left hand surgery-removed piece of bone per patient. Past Anesthesia/Blood Transfusion Reactions: No Reported Reaction Smoking Status: Heavy tobacco smoker - Past Family History Mother Family Medical History: Asthma, Chest Pain / Angina, Congestive Heart Failure (CHF), COPD, Dementia, Hyperlipidemia, Hypertension, Memory Impairment, Myocardial Infarction ([place]), Pneumonia, Seizure Disorder, Sleep Apnea/CPAP/BIPAP Additional Family Medical History / Comment(s): Mother also had renal failure. Patient's mother at the age of 6666 years old. Father Family Medical History: Unable to Obtain Additional Family Medical History / Comment(s): Father has passed but patient unaware of his age when he passed. Medications and Allergies Home Medications Medication Instructions Recorded Confirmed Type Albuterol Inhaler [Ventolin Hfa 2 puff INHALATION QID 05/05/16 06/28/18 History Inhaler] Atorvastatin [Lipitor] 40 mg PO HS 05/05/16 06/28/18 History Fenofibrate [Lofibra] 160 mg PO DAILY 05/05/16 06/30/18 History Magnesium Oxide [Magox 400] 400 mg PO BID 05/05/16 06/28/18 History Metoprolol Tartrate [Lopressor] 50 mg PO BID 05/05/16 06/30/18 History Potassium Chloride [Klor-Con 20 meq PO HS 05/05/16 06/28/18 History Packets] levETIRAcetam [Keppra] 500 mg PO BID 05/05/16 06/30/18 History metFORMIN HCL [Glucophage] 500 mg PO BID 05/05/16 06/30/18 History Albuterol Nebulized [Ventolin 2.5 mg INHALATION TID 04/18/17 06/28/18 History Nebulized] Docusate [Colace] 100 mg PO DAILY 04/18/17 06/28/18 History Lisinopril [Zestril] 5 mg PO DAILY 04/18/17 06/30/18 History Nitroglycerin Sl Tabs [Nitrostat] 0.4 mg SUBLINGUAL Q5M PRN 04/18/17 06/28/18 History cloNIDine HCL [Catapres] 0.2 mg PO BID 04/18/17 06/30/18 History Escitalopram [Lexapro] 20 mg PO DAILY #30 tab 04/26/17 06/30/18 Rx Furosemide [Lasix] 40 mg PO BID 05/20/17 06/30/18 History Budesonide-Formot 160-4.5 Mcg 2 puff INHALATION BID #1 inhaler 11/13/17 06/28/18 Rx [Symbicort 160-4.5 Mcg Inhaler] amLODIPine [Norvasc] 10 mg PO HS 11/13/17 06/30/18 History Cyclobenzaprine [Flexeril] 10 mg PO BID 06/28/18 06/28/18 History Donepezil [Aricept] 10 mg PO HS 06/28/18 06/28/18 History HYDROcodone/APAP 7.5-325MG [[place] 1 tab PO Q6HR PRN 06/28/18 06/28/18 History 7.5-325] Insulin Glargine,Hum.rec.anlog 20 unit SQ HS 06/28/18 06/28/18 History [Lantus Solostar] Insulin Lispro [Admelog] 20 unit SQ AC-TID 06/28/18 06/28/18 History LORazepam [Ativan] 1 mg PO TID 06/28/18 06/28/18 History Melatonin 10 mg PO HS 06/28/18 06/28/18 History Warfarin Sodium 5 mg PO HS 06/28/18 06/28/18 History Allergies Allergy/AdvReac Type Severity Reaction Status Date / Time aspirin Allergy Rash/Hives Verified 06/30/18 07:28 clarithromycin [From Biaxin] Allergy Rash/Hives Verified 06/30/18 07:28 Penicillins Allergy Rash/Hives Verified 06/30/18 07:28 Surgical - Exam Vital Signs Pulse Resp BP Pulse Ox 59 L 14 159/78 92 L 06/30/18 07:13 06/30/18 07:13 06/30/18 07:13 06/30/18 07:13 - General well developed, well nourished, no distress - Eyes PERRL - ENT normal pinna - Neck no masses - Respiratory normal expansion - Cardiovascular Rhythm: regular - Abdomen Abdomen: soft, non tender Results - Labs Abnormal Lab Results - Last 24 Hours (Table) 06/30/18 Range/Units 07:22 POC Glucose (mg/dL) 173 H (75-99) mg/dL Assessment and Plan Assessment: History of colon polyps. We'll perform colonoscopy.
--- NOTE | 2018-06-30 08:22 | P.OP ---
Date of Procedure: 06/30/18 Preoperative Diagnosis: History of colon polyps Postoperative Diagnosis: Rectal polyp, sigmoid colon polyp Internal and external hemorrhoids Procedure(s) Performed: Colonoscopy Anesthesia: MAC Surgeon: Franko Gutierres Pathology: other (Colon polyps) Condition: stable Disposition: PACU Description of Procedure: The patient's placed on the endoscopy table in the lateral position. He received IV sedation. Digital rectal exam was performed which revealed internal and external polyps. The flexible colonoscope was then placed patient anus and passed throughout the entire colon. The ileocecal valve was visualized. The cecum, ascending and transverse colon appeared normal. The descending colon appeared normal. In the sigmoid colon there was a polyp seen this removed with snare. Scope was brought back the rectum another polyp seen this removed the forcep. Scope was then withdrawn from the patient. The internal and external hemorrhoids were visualized.
[2018-06-30 08:38] VITALS: BP 134/74; PULSE 56; RESP 18
== END 2018-06-30 08:44 | disposition home or self-care (01) ==
LOC: ORWHC2ENDO 06:52
PROVIDERS: ATTEND Surgery
DX: Z12.11 Encounter for screening for malignant neoplasm of colon (principal); K62.1 Rectal polyp; K63.5 Polyp of colon; K64.8 Other hemorrhoids; Z86.010 Personal history of colon polyps; K64.4 Residual hemorrhoidal skin tags; E11.9 Type 2 diabetes mellitus without complications; E78.5 Hyperlipidemia, unspecified; F17.200 Nicotine dependence, unspecified, uncomplicated; I11.0 Hypertensive heart disease with heart failure; I50.9 Heart failure, unspecified; I25.2 Old myocardial infarction; I48.91 Unspecified atrial fibrillation; J44.9 Chronic obstructive pulmonary disease, unspecified; M19.90 Unspecified osteoarthritis, unspecified site; Z98.61 Coronary angioplasty status; G40.909 Epilepsy, unspecified, not intractable, without status epilepticus; G47.33 Obstructive sleep apnea (adult) (pediatric); F03.90 Unspecified dementia, unspecified severity, without behavioral disturbance, psychotic disturbance, mood disturbance, and anxiety; I25.10 Atherosclerotic heart disease of native coronary artery without angina pectoris; Z99.89 Dependence on other enabling machines and devices; Z99.81 Dependence on supplemental oxygen; Z86.73 Personal history of transient ischemic attack (TIA), and cerebral infarction without residual deficits; Z79.01 Long term (current) use of anticoagulants; Z79.4 Long term (current) use of insulin; Z79.51 Long term (current) use of inhaled steroids; Z79.899 Other long term (current) drug therapy; Z88.6 Allergy status to analgesic agent; Z88.1 Allergy status to other antibiotic agents; Z88.0 Allergy status to penicillin
CPT/HCPCS: 88305; 45380; 45385; J2704